=== PATIENT | male | born 1960 | race Caucasian/White ===

== ENCOUNTER 2018-01-25 00:13 | Day surgery (SDC) | payer MEDICARE ==
[~2018-01-25 00:13] MED LIST: CITA20 PO; CYCL10 PO; DICL75ER PO; Doxycycline Hy100 MG PO; FURO20 PO; HYDCHL12.5 PO; Ipratropium Bro15 ML BC; LEVSOD88 PO; LISI20 PO; LOVA40 PO; METF500 PO; METO50 PO; MORPHINE 11000 MG/10 IV; PILO5 PO; PREG50 PO; Percocet 10-321 EACH PO; Prilosec Otc20 MG PO; QNASL8.7 GM; TRAM50 PO
== END 2018-01-25 23:22 | disposition home or self-care (01) ==
LOC: WOUND 00:13
PROC: 0HBKXZZ Excision of Right Lower Leg Skin, External Approach (ICD-10-PCS; principal; 2018-01-25)
PROC: 0HBNXZZ Excision of Left Foot Skin, External Approach (ICD-10-PCS; principal; 2018-01-25)
DX: E11.621 Type 2 diabetes mellitus with foot ulcer (principal); E11.622 Type 2 diabetes mellitus with other skin ulcer; L97.522 Non-pressure chronic ulcer of other part of left foot with fat layer exposed; L97.819 Non-pressure chronic ulcer of other part of right lower leg with unspecified severity; I87.2 Venous insufficiency (chronic) (peripheral); I83.009 Varicose veins of unspecified lower extremity with ulcer of unspecified site; R60.0 Localized edema; G47.30 Sleep apnea, unspecified; R22.43 Localized swelling, mass and lump, lower limb, bilateral
CPT/HCPCS: G0463

== ENCOUNTER 2018-02-01 10:57 | Day surgery (SDC) | payer MEDICARE, OTHER | END 2018-02-01 12:21 | disposition home or self-care (01) | LOC: WOUND 10:57 | PROC: 0HBKXZZ Excision of Right Lower Leg Skin, External Approach (ICD-10-PCS; principal; 2018-02-01) | PROC: 0HBNXZZ Excision of Left Foot Skin, External Approach (ICD-10-PCS; principal; 2018-02-01) | DX: E11.621 Type 2 diabetes mellitus with foot ulcer (principal); L97.522 Non-pressure chronic ulcer of other part of left foot with fat layer exposed; E11.622 Type 2 diabetes mellitus with other skin ulcer; I87.2 Venous insufficiency (chronic) (peripheral); L97.819 Non-pressure chronic ulcer of other part of right lower leg with unspecified severity; R60.0 Localized edema; I10 Essential (primary) hypertension; G47.30 Sleep apnea, unspecified ==

== ENCOUNTER 2018-02-03 12:30 | Day surgery (SDC) | payer MEDICARE, OTHER | END 2018-02-03 13:39 | disposition home or self-care (01) | LOC: WOUND 12:30 | PROC: 2W1QX6Z Compression of Right Lower Leg using Pressure Dressing (ICD-10-PCS; principal; 2018-02-03) | DX: I87.2 Venous insufficiency (chronic) (peripheral) (principal); L97.819 Non-pressure chronic ulcer of other part of right lower leg with unspecified severity; E11.621 Type 2 diabetes mellitus with foot ulcer; L97.529 Non-pressure chronic ulcer of other part of left foot with unspecified severity; I83.009 Varicose veins of unspecified lower extremity with ulcer of unspecified site; R60.0 Localized edema; I10 Essential (primary) hypertension; G47.30 Sleep apnea, unspecified; R22.43 Localized swelling, mass and lump, lower limb, bilateral; I70.209 Unspecified atherosclerosis of native arteries of extremities, unspecified extremity ==

== ENCOUNTER 2018-02-06 11:30 | Day surgery (SDC) | payer MEDICARE, OTHER | END 2018-02-06 16:01 | disposition home or self-care (01) | LOC: WOUND 11:30 | PROC: 2W1QX6Z Compression of Right Lower Leg using Pressure Dressing (ICD-10-PCS; principal; 2018-02-06) | DX: E11.622 Type 2 diabetes mellitus with other skin ulcer (principal); E11.621 Type 2 diabetes mellitus with foot ulcer; L97.819 Non-pressure chronic ulcer of other part of right lower leg with unspecified severity; I87.2 Venous insufficiency (chronic) (peripheral); I83.009 Varicose veins of unspecified lower extremity with ulcer of unspecified site; R60.0 Localized edema; I10 Essential (primary) hypertension; G47.30 Sleep apnea, unspecified; E11.21 Type 2 diabetes mellitus with diabetic nephropathy; I70.209 Unspecified atherosclerosis of native arteries of extremities, unspecified extremity ==

== ENCOUNTER 2018-02-22 09:25 | Day surgery (SDC) | payer MEDICARE, OTHER | END 2018-02-22 10:04 | disposition home or self-care (01) | LOC: WOUND 09:25 | DX: Z48.00 Encounter for change or removal of nonsurgical wound dressing (principal); E11.621 Type 2 diabetes mellitus with foot ulcer; L97.529 Non-pressure chronic ulcer of other part of left foot with unspecified severity; I87.2 Venous insufficiency (chronic) (peripheral); R60.0 Localized edema; I10 Essential (primary) hypertension; E11.21 Type 2 diabetes mellitus with diabetic nephropathy | CPT/HCPCS: G0463 ==

== ENCOUNTER 2018-04-14 12:50 | Day surgery (SDC) | payer MEDICARE, OTHER | END 2018-04-14 14:45 | disposition home or self-care (01) | LOC: WOUND 12:50 | PROC: 2W1QX6Z Compression of Right Lower Leg using Pressure Dressing (ICD-10-PCS; principal; 2018-04-14) | DX: I87.2 Venous insufficiency (chronic) (peripheral) (principal); L97.819 Non-pressure chronic ulcer of other part of right lower leg with unspecified severity; I10 Essential (primary) hypertension; Z87.891 Personal history of nicotine dependence; E11.621 Type 2 diabetes mellitus with foot ulcer | CPT/HCPCS: G0463 ==

== ENCOUNTER → 2018-04-26 | Outpatient (CLI) | payer MEDICARE, OTHER | END | disposition home or self-care (01) | LOC: LAB 17:03 → LAB SHORT 17:03 | DX: I89.0 Lymphedema, not elsewhere classified (principal); L08.9 Local infection of the skin and subcutaneous tissue, unspecified; L97.819 Non-pressure chronic ulcer of other part of right lower leg with unspecified severity; R60.0 Localized edema; I87.2 Venous insufficiency (chronic) (peripheral) | CPT/HCPCS: 87070; 87205 ==

== ENCOUNTER 2018-07-24 01:40 | Day surgery (SDC) | payer MEDICARE, OTHER | END 2018-07-24 22:40 | disposition home or self-care (01) | LOC: WOUND | DX: E11.621 Type 2 diabetes mellitus with foot ulcer (principal); L97.422 Non-pressure chronic ulcer of left heel and midfoot with fat layer exposed; L97.812 Non-pressure chronic ulcer of other part of right lower leg with fat layer exposed; L97.811 Non-pressure chronic ulcer of other part of right lower leg limited to breakdown of skin; L97.821 Non-pressure chronic ulcer of other part of left lower leg limited to breakdown of skin; I89.0 Lymphedema, not elsewhere classified; M79.672 Pain in left foot; E11.42 Type 2 diabetes mellitus with diabetic polyneuropathy; L95.9 Vasculitis limited to the skin, unspecified ==

== ENCOUNTER 2018-07-27 00:16 | Day surgery (SDC) | payer MEDICARE, OTHER | END 2018-07-27 22:54 | disposition home or self-care (01) | LOC: WOUND 00:16 | DX: E11.621 Type 2 diabetes mellitus with foot ulcer (principal); L97.812 Non-pressure chronic ulcer of other part of right lower leg with fat layer exposed; L97.422 Non-pressure chronic ulcer of left heel and midfoot with fat layer exposed; L97.811 Non-pressure chronic ulcer of other part of right lower leg limited to breakdown of skin; L97.821 Non-pressure chronic ulcer of other part of left lower leg limited to breakdown of skin; S71.101D Unspecified open wound, right thigh, subsequent encounter; I89.0 Lymphedema, not elsewhere classified; R22.31 Localized swelling, mass and lump, right upper limb; M79.672 Pain in left foot; E11.42 Type 2 diabetes mellitus with diabetic polyneuropathy ==

== ENCOUNTER 2018-08-03 09:05 | Day surgery (SDC) | payer MEDICARE, OTHER | END 2018-08-03 23:00 | disposition home or self-care (01) | LOC: WOUND 09:05 | DX: E11.621 Type 2 diabetes mellitus with foot ulcer (principal); L97.422 Non-pressure chronic ulcer of left heel and midfoot with fat layer exposed; L97.812 Non-pressure chronic ulcer of other part of right lower leg with fat layer exposed; L97.811 Non-pressure chronic ulcer of other part of right lower leg limited to breakdown of skin; L97.821 Non-pressure chronic ulcer of other part of left lower leg limited to breakdown of skin; I89.0 Lymphedema, not elsewhere classified; M79.672 Pain in left foot; E11.42 Type 2 diabetes mellitus with diabetic polyneuropathy | CPT/HCPCS: 87070; 87075; 87205 ==

== ENCOUNTER 2018-08-10 09:15 | Day surgery (SDC) | payer MEDICARE, OTHER | END 2018-08-10 22:44 | disposition home or self-care (01) | LOC: WOUND 09:15 | DX: E11.621 Type 2 diabetes mellitus with foot ulcer (principal); L97.422 Non-pressure chronic ulcer of left heel and midfoot with fat layer exposed; L97.812 Non-pressure chronic ulcer of other part of right lower leg with fat layer exposed; L97.811 Non-pressure chronic ulcer of other part of right lower leg limited to breakdown of skin; L97.821 Non-pressure chronic ulcer of other part of left lower leg limited to breakdown of skin; I89.0 Lymphedema, not elsewhere classified; R22.31 Localized swelling, mass and lump, right upper limb; M79.672 Pain in left foot; E11.42 Type 2 diabetes mellitus with diabetic polyneuropathy ==

== ENCOUNTER 2018-08-17 09:15 | Day surgery (SDC) | payer MEDICARE, OTHER | END 2018-08-17 22:50 | disposition home or self-care (01) | LOC: WOUND 09:15 | DX: E11.621 Type 2 diabetes mellitus with foot ulcer (principal); L97.422 Non-pressure chronic ulcer of left heel and midfoot with fat layer exposed; L97.812 Non-pressure chronic ulcer of other part of right lower leg with fat layer exposed; L97.811 Non-pressure chronic ulcer of other part of right lower leg limited to breakdown of skin; L97.821 Non-pressure chronic ulcer of other part of left lower leg limited to breakdown of skin; I89.0 Lymphedema, not elsewhere classified; R22.31 Localized swelling, mass and lump, right upper limb; M79.672 Pain in left foot; E11.42 Type 2 diabetes mellitus with diabetic polyneuropathy; Z88.0 Allergy status to penicillin; Z79.84 Long term (current) use of oral hypoglycemic drugs | CPT/HCPCS: 87070; 87075; 87077; 87147; 87186; 87205 ==

== ENCOUNTER 2018-08-24 00:27 | Day surgery (SDC) | payer MEDICARE, OTHER | END 2018-08-24 23:59 | disposition home or self-care (01) | LOC: WOUND 00:27 | PROC: 0HBNXZZ Excision of Left Foot Skin, External Approach (ICD-10-PCS; principal; 2018-08-24) | PROC: 0HBKXZZ Excision of Right Lower Leg Skin, External Approach (ICD-10-PCS; principal; 2018-08-24) | DX: E11.621 Type 2 diabetes mellitus with foot ulcer (principal); L97.811 Non-pressure chronic ulcer of other part of right lower leg limited to breakdown of skin; I89.0 Lymphedema, not elsewhere classified; R22.31 Localized swelling, mass and lump, right upper limb; E11.42 Type 2 diabetes mellitus with diabetic polyneuropathy; M79.672 Pain in left foot; E11.622 Type 2 diabetes mellitus with other skin ulcer; L97.429 Non-pressure chronic ulcer of left heel and midfoot with unspecified severity | CPT/HCPCS: 87070; 87077; 87186; 87205 ==

== ENCOUNTER 2018-08-31 09:30 | Day surgery (SDC) | payer MEDICARE, OTHER | END 2018-08-31 22:53 | disposition home or self-care (01) | LOC: WOUND 09:30 | DX: E11.621 Type 2 diabetes mellitus with foot ulcer (principal); L97.425 Non-pressure chronic ulcer of left heel and midfoot with muscle involvement without evidence of necrosis; L97.811 Non-pressure chronic ulcer of other part of right lower leg limited to breakdown of skin; L97.821 Non-pressure chronic ulcer of other part of left lower leg limited to breakdown of skin; I89.0 Lymphedema, not elsewhere classified; R22.31 Localized swelling, mass and lump, right upper limb; M79.672 Pain in left foot; E11.42 Type 2 diabetes mellitus with diabetic polyneuropathy; Z79.01 Long term (current) use of anticoagulants | CPT/HCPCS: G0463 ==

== ENCOUNTER 2018-09-07 09:09 | Day surgery (SDC) | payer MEDICARE, OTHER | END 2018-09-07 23:19 | disposition home or self-care (01) | LOC: WOUND 09:09 | DX: E11.621 Type 2 diabetes mellitus with foot ulcer (principal); L97.425 Non-pressure chronic ulcer of left heel and midfoot with muscle involvement without evidence of necrosis; L97.812 Non-pressure chronic ulcer of other part of right lower leg with fat layer exposed; L97.811 Non-pressure chronic ulcer of other part of right lower leg limited to breakdown of skin; I89.0 Lymphedema, not elsewhere classified; R22.31 Localized swelling, mass and lump, right upper limb; M79.672 Pain in left foot; E11.42 Type 2 diabetes mellitus with diabetic polyneuropathy; Z79.01 Long term (current) use of anticoagulants; Z79.84 Long term (current) use of oral hypoglycemic drugs ==

== ENCOUNTER 2018-09-14 08:50 | Day surgery (SDC) | payer MEDICARE, OTHER | END 2018-09-14 23:01 | disposition home or self-care (01) | LOC: WOUND 08:50 | DX: E11.621 Type 2 diabetes mellitus with foot ulcer (principal); E11.622 Type 2 diabetes mellitus with other skin ulcer; L97.811 Non-pressure chronic ulcer of other part of right lower leg limited to breakdown of skin; L97.422 Non-pressure chronic ulcer of left heel and midfoot with fat layer exposed; L97.812 Non-pressure chronic ulcer of other part of right lower leg with fat layer exposed; I89.0 Lymphedema, not elsewhere classified; R22.31 Localized swelling, mass and lump, right upper limb; E11.42 Type 2 diabetes mellitus with diabetic polyneuropathy; I10 Essential (primary) hypertension; E78.5 Hyperlipidemia, unspecified; G47.33 Obstructive sleep apnea (adult) (pediatric) ==

== ENCOUNTER 2018-09-21 00:27 | Day surgery (SDC) | payer MEDICARE, OTHER | END 2018-09-21 22:45 | disposition home or self-care (01) | LOC: WOUND 00:27 | DX: E11.621 Type 2 diabetes mellitus with foot ulcer (principal); L97.425 Non-pressure chronic ulcer of left heel and midfoot with muscle involvement without evidence of necrosis; L97.812 Non-pressure chronic ulcer of other part of right lower leg with fat layer exposed; L97.811 Non-pressure chronic ulcer of other part of right lower leg limited to breakdown of skin; I89.0 Lymphedema, not elsewhere classified; R22.31 Localized swelling, mass and lump, right upper limb; M79.672 Pain in left foot; E11.42 Type 2 diabetes mellitus with diabetic polyneuropathy; Z79.82 Long term (current) use of aspirin; Z79.84 Long term (current) use of oral hypoglycemic drugs ==

== ENCOUNTER 2018-09-26 00:17 | Day surgery (SDC) | payer MEDICARE, OTHER | END 2018-09-26 22:46 | disposition home or self-care (01) | LOC: WOUND 00:17 | DX: E11.621 Type 2 diabetes mellitus with foot ulcer (principal); L97.429 Non-pressure chronic ulcer of left heel and midfoot with unspecified severity; E11.622 Type 2 diabetes mellitus with other skin ulcer; L97.811 Non-pressure chronic ulcer of other part of right lower leg limited to breakdown of skin; E11.42 Type 2 diabetes mellitus with diabetic polyneuropathy; I89.0 Lymphedema, not elsewhere classified; M79.672 Pain in left foot; R22.31 Localized swelling, mass and lump, right upper limb; E66.9 Obesity, unspecified; I10 Essential (primary) hypertension; E78.5 Hyperlipidemia, unspecified; G47.33 Obstructive sleep apnea (adult) (pediatric) ==

== ENCOUNTER 2018-09-28 09:00 | Day surgery (SDC) | payer MEDICARE, OTHER | END 2018-09-28 22:43 | disposition home or self-care (01) | LOC: WOUND 09:00 | DX: E11.621 Type 2 diabetes mellitus with foot ulcer (principal); L97.422 Non-pressure chronic ulcer of left heel and midfoot with fat layer exposed; L97.811 Non-pressure chronic ulcer of other part of right lower leg limited to breakdown of skin; I89.0 Lymphedema, not elsewhere classified; R22.31 Localized swelling, mass and lump, right upper limb; M79.672 Pain in left foot; E11.42 Type 2 diabetes mellitus with diabetic polyneuropathy; Z79.84 Long term (current) use of oral hypoglycemic drugs; Z88.0 Allergy status to penicillin ==

== ENCOUNTER 2018-11-13 00:29 | Day surgery (SDC) | payer MEDICARE, OTHER ==
[~2018-11-13 00:29] MED LIST changes: +ESOM20 PO
== END 2018-11-13 18:40 | disposition home or self-care (01) ==
LOC: ATC 00:29
DX: E11.42 Type 2 diabetes mellitus with diabetic polyneuropathy (principal); L03.116 Cellulitis of left lower limb; E11.621 Type 2 diabetes mellitus with foot ulcer; L97.429 Non-pressure chronic ulcer of left heel and midfoot with unspecified severity
CPT/HCPCS: J3370; J7050

== ENCOUNTER 2018-11-29 07:36 | Day surgery (SDC) | payer MEDICARE, OTHER ==
[2018-11-29] MEDS ORDERED: Rocephin 1g1 G/50 ML IV (08:05)
== END 2018-11-29 08:20 | disposition home or self-care (01) ==
LOC: ATC 07:36
DX: I87.2 Venous insufficiency (chronic) (peripheral) (principal); L03.116 Cellulitis of left lower limb; L03.115 Cellulitis of right lower limb; I83.009 Varicose veins of unspecified lower extremity with ulcer of unspecified site; E11.621 Type 2 diabetes mellitus with foot ulcer; E11.21 Type 2 diabetes mellitus with diabetic nephropathy; E11.51 Type 2 diabetes mellitus with diabetic peripheral angiopathy without gangrene; I70.209 Unspecified atherosclerosis of native arteries of extremities, unspecified extremity; I10 Essential (primary) hypertension; G47.30 Sleep apnea, unspecified
CPT/HCPCS: 96365; J0696

== ENCOUNTER 2018-11-30 00:15 | Day surgery (SDC) | payer MEDICARE, OTHER ==
[~2018-11-30 00:15] MED LIST changes: +Rocephin 1g1 G/50 ML IV
== END 2018-11-30 10:39 | disposition home or self-care (01) ==
LOC: ATC 00:15
DX: I87.2 Venous insufficiency (chronic) (peripheral) (principal); L03.116 Cellulitis of left lower limb; L03.115 Cellulitis of right lower limb
CPT/HCPCS: 96365; J0696

== ENCOUNTER 2018-12-01 00:16 | Day surgery (SDC) | payer MEDICARE, OTHER | END 2018-12-01 10:45 | disposition home or self-care (01) | LOC: ATC 00:16 | DX: I87.2 Venous insufficiency (chronic) (peripheral) (principal); L03.115 Cellulitis of right lower limb; L03.116 Cellulitis of left lower limb; E11.621 Type 2 diabetes mellitus with foot ulcer; E11.21 Type 2 diabetes mellitus with diabetic nephropathy; E11.51 Type 2 diabetes mellitus with diabetic peripheral angiopathy without gangrene; I70.209 Unspecified atherosclerosis of native arteries of extremities, unspecified extremity; I83.009 Varicose veins of unspecified lower extremity with ulcer of unspecified site; I10 Essential (primary) hypertension; G47.30 Sleep apnea, unspecified | CPT/HCPCS: 96365; J0696 ==

== ENCOUNTER 2018-12-02 10:00 | Day surgery (SDC) | payer MEDICARE, OTHER | END 2018-12-02 23:30 | disposition home or self-care (01) | LOC: ATC 10:00 | DX: I87.2 Venous insufficiency (chronic) (peripheral) (principal); L03.116 Cellulitis of left lower limb; L03.115 Cellulitis of right lower limb; E11.9 Type 2 diabetes mellitus without complications | CPT/HCPCS: 96365 ==

== ENCOUNTER 2018-12-03 00:03 | Day surgery (SDC) | payer MEDICARE, OTHER | END 2018-12-03 22:39 | disposition home or self-care (01) | LOC: ATC 00:03 | DX: I87.2 Venous insufficiency (chronic) (peripheral) (principal); E11.42 Type 2 diabetes mellitus with diabetic polyneuropathy; L03.116 Cellulitis of left lower limb; L03.115 Cellulitis of right lower limb ==

== ENCOUNTER 2018-12-04 00:04 | Day surgery (SDC) | payer MEDICARE, OTHER | END 2018-12-04 23:07 | disposition home or self-care (01) | LOC: ATC 00:04 | DX: I87.2 Venous insufficiency (chronic) (peripheral) (principal); E11.42 Type 2 diabetes mellitus with diabetic polyneuropathy; L03.116 Cellulitis of left lower limb; L03.115 Cellulitis of right lower limb ==

== ENCOUNTER 2018-12-14 15:00 | Day surgery (SDC) | payer MEDICARE, OTHER | END 2018-12-14 15:03 | disposition home or self-care (01) | LOC: ATC 15:00 | DX: E11.42 Type 2 diabetes mellitus with diabetic polyneuropathy (principal); L03.116 Cellulitis of left lower limb; E11.621 Type 2 diabetes mellitus with foot ulcer; L97.429 Non-pressure chronic ulcer of left heel and midfoot with unspecified severity; M86.172 Other acute osteomyelitis, left ankle and foot; L02.612 Cutaneous abscess of left foot; B99.9 Unspecified infectious disease; M77.32 Calcaneal spur, left foot; I89.0 Lymphedema, not elsewhere classified | CPT/HCPCS: 96365; J0696 ==

== ENCOUNTER 2018-12-16 10:58 | Day surgery (SDC) | payer MEDICARE, OTHER | END 2018-12-16 13:09 | disposition home or self-care (01) | LOC: ATC 10:58 | DX: E11.69 Type 2 diabetes mellitus with other specified complication (principal); M86.172 Other acute osteomyelitis, left ankle and foot; E11.621 Type 2 diabetes mellitus with foot ulcer; L03.116 Cellulitis of left lower limb; L03.115 Cellulitis of right lower limb; L02.612 Cutaneous abscess of left foot; E11.42 Type 2 diabetes mellitus with diabetic polyneuropathy; I87.2 Venous insufficiency (chronic) (peripheral); M77.32 Calcaneal spur, left foot; I89.0 Lymphedema, not elsewhere classified; B99.9 Unspecified infectious disease | CPT/HCPCS: 36569; 96365; C1751; J0696 ==

== ENCOUNTER 2018-12-17 11:02 | Day surgery (SDC) | payer MEDICARE, OTHER | END 2018-12-17 11:38 | disposition home or self-care (01) | LOC: ATC 11:02 | DX: E11.69 Type 2 diabetes mellitus with other specified complication (principal); M86.172 Other acute osteomyelitis, left ankle and foot; E11.621 Type 2 diabetes mellitus with foot ulcer; L03.116 Cellulitis of left lower limb; L03.115 Cellulitis of right lower limb; L02.612 Cutaneous abscess of left foot; E11.42 Type 2 diabetes mellitus with diabetic polyneuropathy; I87.2 Venous insufficiency (chronic) (peripheral); M77.32 Calcaneal spur, left foot; I89.0 Lymphedema, not elsewhere classified; B99.9 Unspecified infectious disease | CPT/HCPCS: 96365; J0696 ==

== ENCOUNTER 2018-12-20 00:20 | Day surgery (SDC) | payer MEDICARE, OTHER | END 2018-12-20 22:46 | disposition home or self-care (01) | LOC: ATC 00:20 | DX: I87.2 Venous insufficiency (chronic) (peripheral) (principal); L03.116 Cellulitis of left lower limb; L03.115 Cellulitis of right lower limb; E11.621 Type 2 diabetes mellitus with foot ulcer; L97.429 Non-pressure chronic ulcer of left heel and midfoot with unspecified severity; I83.009 Varicose veins of unspecified lower extremity with ulcer of unspecified site; E11.51 Type 2 diabetes mellitus with diabetic peripheral angiopathy without gangrene; I70.209 Unspecified atherosclerosis of native arteries of extremities, unspecified extremity; E11.42 Type 2 diabetes mellitus with diabetic polyneuropathy; I10 Essential (primary) hypertension; G47.30 Sleep apnea, unspecified | CPT/HCPCS: 96365; J0696 ==

== ENCOUNTER → 2021-07-01 | Outpatient (CLI) | payer MEDICARE, OTHER ==
[2021-07-01 09:48] LABS: BASOPHILS ABSOLUTE AUTO 0.07 K/mm3 (0.00-0.23); BASOPHILS PERCENT AUTO 1 % (0-2); EOSINOPHILS PERCENT AUTO 2 % (0-6); Hematocrit 37.9 % (37.0-53.0); Hemoglobin 11.8 g/dL (13.5-17.5); IMMATURE GRAN ABSOLUTE AUTO 0.12 K/mm3 (0.00-0.10); IMMATURE GRAN PERCENT AUTO 1 % (0-1); LYMPHOCYTES ABSOLUTE AUTO 1.25 K/mm3 (0.84-5.20); LYMPHOCYTES PERCENT AUTO 10 % (21-46); MONOCYTES ABSOLUTE AUTO 0.98 K/mm3 (0.16-1.47); MONOCYTES PERCENT AUTO 8 % (4-13); Mean Corpuscular HGB 25.4 pg (26.0-34.0); Mean Corpuscular HGB Conc 31.1 g/dL (31.5-36.5); Mean Corpuscular Volume 82 fL (80-100); Mean Platelet Volume 8.2 fL (9.1-12.4); NEUTROPHILS ABSOLUTE AUTO 10.36 K/mm3 (1.96-9.15); NEUTROPHILS PERCENT AUTO 80 % (41-73); Platelet Count 614 K/mm3 (150-400); RDW Coefficient Variation 14.7 % (11.7-14.2); RDW Standard Deviation 44.3 fL (35.1-46.3); Red Blood Cell Count 4.65 M/mm3 (4.30-5.90); White Blood Cell Count 12.98 K/mm3 (4.00-11.30)
[2021-07-01 10:11] LABS: Alanine Aminotransfer (ALT/SGP 16 U/L (12-78); Albumin, Blood 2.2 g/dL (3.4-5.0); Albumin/Globulin Ratio 0.3 (0.8-1.8); Alk Phos 163 U/L (40-126); Anion Gap 9 mmol/L (6-16); Aspartate Aminotrans (AST/SGOT 7 U/L (12-37); Bilirubin, Total 0.3 mg/dL (0.1-1.0); Blood Urea Nitrogen 11 mg/dL (8-24); Bun/Creatinine Ratio 14.3 (12.0-20.0); CO2, Blood 30 mmol/L (21-32); Calcium, Blood 9.8 mg/dL (8.5-10.1); Chloride, Blood 97 mmol/L (98-108); Creatinine, Blood 0.77 mg/dL (0.60-1.20); Globulin, Blood 6.5 g/dL (2.2-4.0); Glomerular Filtration Rate >60 (60-); Glucose, Blood 216 mg/dL (70-99); Potassium, Blood 4.4 mmol/L (3.5-5.5); Sodium, Blood 136 mmol/L (136-145); Thyroid Stimulating Hormone 1.859 uIU/mL (0.360-4.800); Total Protein, Blood 8.7 g/dL (6.4-8.2)
[2021-07-01 10:15] LABS: Troponin I <0.017 ng/mL (0.000-0.040)
== END ==
LOC: LAB SHORT 09:42
PROVIDERS: Chiropractor
DX: R07.81 Pleurodynia (principal); R53.83 Other fatigue; Z88.0 Allergy status to penicillin
CPT/HCPCS: 80053; 83880; 84443; 84484; 85025; 85379

== ENCOUNTER → 2021-07-22 | Outpatient (CLI) | payer MEDICARE, OTHER ==
[2021-07-22 14:09] LABS: BASOPHILS ABSOLUTE AUTO 0.02 K/mm3 (0.00-0.23); BASOPHILS PERCENT AUTO 0 % (0-2); EOSINOPHILS ABSOLUTE AUTO 0.02 K/mm3 (0.00-0.68); EOSINOPHILS PERCENT AUTO 0 % (0-6); Hematocrit 37.7 % (37.0-53.0); Hemoglobin 11.8 g/dL (13.5-17.5); IMMATURE GRAN ABSOLUTE AUTO 0.06 K/mm3 (0.00-0.10); IMMATURE GRAN PERCENT AUTO 1 % (0-1); LYMPHOCYTES ABSOLUTE AUTO 0.74 K/mm3 (0.84-5.20); LYMPHOCYTES PERCENT AUTO 8 % (21-46); MONOCYTES ABSOLUTE AUTO 0.52 K/mm3 (0.16-1.47); MONOCYTES PERCENT AUTO 5 % (4-13); Mean Corpuscular HGB 24.9 pg (26.0-34.0); Mean Corpuscular HGB Conc 31.3 g/dL (31.5-36.5); Mean Corpuscular Volume 80 fL (80-100); Mean Platelet Volume 8.4 fL (9.1-12.4); NEUTROPHILS ABSOLUTE AUTO 8.49 K/mm3 (1.96-9.15); NEUTROPHILS PERCENT AUTO 86 % (41-73); Platelet Count 333 K/mm3 (150-400); RDW Coefficient Variation 14.6 % (11.7-14.2); RDW Standard Deviation 42.6 fL (35.1-46.3); Red Blood Cell Count 4.73 M/mm3 (4.30-5.90); White Blood Cell Count 9.85 K/mm3 (4.00-11.30)
[2021-07-22 14:26] LABS: Alanine Aminotransfer (ALT/SGP 31 U/L (12-78); Albumin, Blood 2.5 g/dL (3.4-5.0); Albumin/Globulin Ratio 0.4 (0.8-1.8); Alk Phos 115 U/L (40-126); Anion Gap 10 mmol/L (6-16); Aspartate Aminotrans (AST/SGOT 22 U/L (12-37); Bilirubin, Total 0.4 mg/dL (0.1-1.0); Blood Urea Nitrogen 9 mg/dL (8-24); Bun/Creatinine Ratio 13.4 (12.0-20.0); CO2, Blood 28 mmol/L (21-32); Chloride, Blood 98 mmol/L (98-108); Creatinine, Blood 0.67 mg/dL (0.60-1.20); Globulin, Blood 6.4 g/dL (2.2-4.0); Glomerular Filtration Rate >60 (60-); Glucose, Blood 222 mg/dL (70-99); Potassium, Blood 3.8 mmol/L (3.5-5.5); Sodium, Blood 136 mmol/L (136-145); Total Protein, Blood 8.9 g/dL (6.4-8.2); Troponin I <0.017 ng/mL (0.000-0.040)
== END | disposition home or self-care (01) ==
LOC: LAB 14:05 → LAB SHORT 14:05
PROVIDERS: Family Medicine
DX: R07.89 Other chest pain (principal)
CPT/HCPCS: 80053; 84484; 85025; 85379

== ENCOUNTER 2021-08-06 10:45 | Inpatient (IN) | payer MEDICARE, OTHER ==
[~2021-08-06] VITALS: Ht 182.9 cm; Wt 103.8 kg
[2021-08-06 11:18] LABS: BASOPHILS ABSOLUTE AUTO 0.04 K/mm3 (0.00-0.23); BASOPHILS PERCENT AUTO 0 % (0-2); Hematocrit 38.9 % (37.0-53.0); Hemoglobin 12.3 g/dL (13.5-17.5); LYMPHOCYTES PERCENT AUTO 4 % (21-46); MONOCYTES ABSOLUTE AUTO 0.54 K/mm3 (0.16-1.47); MONOCYTES PERCENT AUTO 3 % (4-13); Mean Corpuscular HGB Conc 31.6 g/dL (31.5-36.5); Mean Corpuscular Volume 76 fL (80-100); Mean Platelet Volume 9.8 fL (9.1-12.4); NRBC ABSOLUTE 0.02 K/mm3 (0.00-0.02); NRBC Auto 0.1 /100 WBC (0.0-0.2); Platelet Count 394 K/mm3 (150-400); RDW Standard Deviation 41.5 fL (35.1-46.3); Red Blood Cell Count 5.13 M/mm3 (4.30-5.90); White Blood Cell Count 16.59 K/mm3 (4.00-11.30)
[2021-08-06 11:21] LABS: EOSINOPHILS PERCENT AUTO 0 % (0-6); IMMATURE GRAN ABSOLUTE AUTO 0.29 K/mm3 (0.00-0.10); IMMATURE GRAN PERCENT AUTO 2 % (0-1); NEUTROPHILS ABSOLUTE AUTO 15.02 K/mm3 (1.96-9.15); NEUTROPHILS PERCENT AUTO 91 % (41-73)
[2021-08-06 11:28] LABS: Base Excess Venous 1.2 mmol/L; Bicarbonate Venous 25.2 mmol/L (24.0-30.0); PCO2 Venous 34.8 mmHg (38-42); PO2 Venous 36.4 mmHg (38-42); pH Blood Venous 7.47 (7.34-7.37)
[2021-08-06 11:30] LABS: Calcium, Ionized (POC) 1.23 mmol/L (1.10-1.46); Chloride (POC) 90 mmol/L (98-108); Creatinine (POC) 0.5 mg/dL (0.8-1.3); Glucose (ISTAT POC) 365 mg/dL (70-99); Hemoglobin (POC) 13.3 g/dL (13.5-17.5); Potassium (POC) 3.9 mmol/L (3.5-5.5); Sodium (POC) 127 mmol/L (135-148); Total CO2 (POC) 22 mmol/L (21-32)
[2021-08-06 11:36] LABS: Alanine Aminotransfer (ALT/SGP 90 U/L (12-78); Albumin, Blood 1.4 g/dL (3.4-5.0); Albumin/Globulin Ratio 0.2 (0.8-1.8); Alk Phos 244 U/L (50-136); Anion Gap 14 mmol/L (6-16); Aspartate Aminotrans (AST/SGOT 179 U/L (12-37); Blood Urea Nitrogen 18 mg/dL (8-24); Bun/Creatinine Ratio 33.3 (12.0-20.0); CO2, Blood 22 mmol/L (21-32); Calcium, Blood 10.4 mg/dL (8.5-10.1); Chloride, Blood 90 mmol/L (98-108); Creatinine, Blood 0.54 mg/dL (0.60-1.20); Globulin, Blood 6.7 g/dL (2.2-4.0); Glomerular Filtration Rate >60 (60-); Glucose, Blood 361 mg/dL (70-99); Sodium, Blood 126 mmol/L (136-145); Total Protein, Blood 8.1 g/dL (6.4-8.2); Troponin I <0.015 ng/mL (0.000-0.040)
[2021-08-06 11:56] LABS: BAND PERCENT MAN 6 % (0-8); BASOPHILS PERCENT MAN 0 % (0-2); EOSINOPHILS PERCENT MAN 0 % (0-6); LYMPHOCYTES ABSOLUTE MAN 0.33 K/mm3 (0.84-5.20); LYMPHOCYTES PERCENT MAN 2 % (21-46); MONOCYTES ABSOLUTE MAN 0.33 K/mm3 (0.16-1.47); MONOCYTES PERCENT MAN 2 % (4-13); MYELOCYTE ABSOLUTE MAN 0.49 K/mm3 (0.00-0.00); MYELOCYTE PERCENT MAN 3 % (0-0); NEUTROPHILS ABSOLUTE MAN 15.42 K/mm3 (1.96-9.15); SEG NEUTROPHILS PERCENT MAN 87 % (41-73); TOTAL CELLS COUNTED 100
[2021-08-06 12:18] LABS: Free Thyroxine 1.41 ng/dL (0.70-1.60); Thyroid Stimulating Hormone 0.717 uIU/mL (0.360-4.800)
[2021-08-06 12:22] LABS: Source, Urine Catheter
[2021-08-06 12:30] LABS: Appearance, Urine Clear (Clear); Blood, Urine 5+ (Neg); Color, Urine Amber (P-Yellow); Glucose Qualitative, Urine 2+ (Neg); Ketones, Urine 3+ (Neg); Leukocyte Esterase, Urine Neg (Neg); Nitrite, Urine Pos (Neg); Protein, Urine 4+ (Neg); Urobilinogen, Urine 2+ (Normal)
[2021-08-06 12:54] LABS: Bilirubin, Urine 1+ (Neg)
[2021-08-06 13:01] LABS: Amorphous Mod (0-Heavy); Bacteria Many /hpf; Mucus Heavy (0-Heavy); Squamous Epithelial Cells Rare /hpf (Few)
[2021-08-06 13:07] LABS: PCO2 Arterial 27.2 mmHg (35-45); PO2 Arterial 59.6 mmHg (80-100); pH Blood Arterial 7.57 (7.35-7.45)
[2021-08-06 13:17] LABS: U Amphetamine Screen Not Detected; U Barbituate Screen Not Detected; U Benzodiazapine Screen Not Detected; U Cocaine Screen Not Detected; U Methadone Screen Not Detected; U Methamphetamine Screen Not Detected; U Opiates Screen DETECTED
[2021-08-06 13:18] LABS: U Buprenorphine Screen Not Detected; U Cannabinoids Screen Not Detected; U Oxycodone Screen Not Detected; U Phencyclidine Screen Not Detected; U Propoxyphene Screen Not Detected
[2021-08-06] MEDS ORDERED: ATORVASTATIN CA80 M1 PO (15:33)
[2021-08-06] MEDS ORDERED: CELEXA40 M1 PO (15:34)
[2021-08-06] MEDS ORDERED: CYCL10 PO (15:36)
[2021-08-06] MEDS ORDERED: Trulicity SC (15:37)
[2021-08-06] MEDS ORDERED: FAMO20 PO (15:38)
[2021-08-06] MEDS ORDERED: GABA300 PO (15:39)
[2021-08-06] MEDS ORDERED: SYNTHROID PO (15:40)
[2021-08-06] MEDS ORDERED: METFORMIN HCL500 M3 PO (15:42)
[2021-08-06] MEDS ORDERED: Lopressor 25 mg25 MG PO (15:43)
[2021-08-06] MEDS ORDERED: K-Dur20 MEQ PO (15:44)
--- NOTE | 2021-08-07 02:27 | NUR ---
ASSUMED CARE OF PATIENT AT 2114 FROM ED. SEGUN A/O. PATIENT MOANS WITH INCOMPREHENSIBLE SPEECH. AT BEDSIDE. GENERALIZED BODY PAIN 5/10. MAINTAINING OVER 95% ON 2L NC. DIM LS T/O. TACHYPNEA 28-30. ST ON MONITOR 110'S. FAINT/THREADY PULSES T/O. HANDS COLD TO THE TOUCH WITH CAP REFILL OVER 3 SECONDS. LLL 3+ PITTING EDEMA, STUMP VERY RED AND WARM TO TOUCH 3. RLL 2+ LYMPHEDEMA, RED WELL. PATIENTS FACE FRANTZ IN COLOR. MORALES DRAINING TO GRAVITY HUSAM IN COLOR. BUTTOCK WOUNDS, AND RLE WOUNDS NOTED IN CHART. PARTWAY THROUGH SHIFT, PATIENT SEEMED MORE ALERT. WOULD SAY "THANK YOU", AND MUMBLINGS WERE MORE CLEAR. BLOOD CULTURES (X2) RETURNED WITH GRAM POS COCCI IN CLUSTERS. LACTIC DOWN TO 1.7. FEVER RESOLVED TO BASELINE. WILL UPDATE CHANGES OCCUR.
[2021-08-07 13:23] LABS: Hemoglobin 11.2 g/dL (13.5-17.5); Mean Corpuscular HGB 24.2 pg (26.0-34.0); Mean Corpuscular HGB Conc 31.1 g/dL (31.5-36.5); Mean Corpuscular Volume 78 fL (80-100); Platelet Count 309 K/mm3 (150-400); RDW Coefficient Variation 15.4 % (11.7-14.2); RDW Standard Deviation 43.6 fL (35.1-46.3); Red Blood Cell Count 4.62 M/mm3 (4.30-5.90); White Blood Cell Count 12.41 K/mm3 (4.00-11.30)
[2021-08-07 14:14] LABS: BAND PERCENT MAN 3 % (0-8); BASOPHILS PERCENT MAN 0 % (0-2); EOSINOPHILS PERCENT MAN 0 % (0-6); LYMPHOCYTES ABSOLUTE MAN 0.62 K/mm3 (0.84-5.20); LYMPHOCYTES PERCENT MAN 5 % (21-46); METAMYELOCYTE ABSOLUTE MAN 0.12 K/mm3 (0.00-0.00); METAMYELOCYTE PERCENT MAN 1 % (0-0); MONOCYTES ABSOLUTE MAN 0.37 K/mm3 (0.16-1.47); MONOCYTES PERCENT MAN 3 % (4-13); NEUTROPHILS ABSOLUTE MAN 11.29 K/mm3 (1.96-9.15); SEG NEUTROPHILS PERCENT MAN 88 % (41-73); TOTAL CELLS COUNTED 100
[2021-08-07 14:20] LABS: Alanine Aminotransfer (ALT/SGP 93 U/L (12-78); Albumin, Blood 1.1 g/dL (3.4-5.0); Albumin/Globulin Ratio 0.2 (0.8-1.8); Alk Phos 181 U/L (50-136); Anion Gap 6 mmol/L (6-16); Aspartate Aminotrans (AST/SGOT 234 U/L (12-37); Bilirubin, Total 0.5 mg/dL (0.1-1.0); Blood Urea Nitrogen 12 mg/dL (8-24); Bun/Creatinine Ratio 24.9 (12.0-20.0); C-REACTIVE PROTEIN, EXT RANGE >19.000 mg/dL (0.000-0.300); CO2, Blood 30 mmol/L (21-32); Calcium, Blood 9.3 mg/dL (8.5-10.1); Chloride, Blood 101 mmol/L (98-108); Creatinine, Blood 0.48 mg/dL (0.60-1.20); Globulin, Blood 5.1 g/dL (2.2-4.0); Glomerular Filtration Rate >60 (60-); Glucose, Blood 154 mg/dL (70-99); Potassium, Blood 3.5 mmol/L (3.5-5.5); Sodium, Blood 137 mmol/L (136-145); Total Protein, Blood 6.2 g/dL (6.4-8.2)
--- NOTE | 2021-08-07 18:34 | NUR ---
PT REMAINS WITH AMS. PT IS ABLE TO ANSWER SOME QUESTIONS WITH 2-3 WORD ANSWERS. WHEN ARRIVED PT WAS ABLE TO TALK IN FRAGMENTED SENTENCES WITH . REDNESS TO LEGS APPEARS TO CONTINUE TO DECREASE T/O THE DAY, SKIN IS MARKED FOR THE REDNESS THAT WAS NOTED LAST NOC. VSS. NO 02 RATE CHANGES THIS SHIFT. PT DENIES CP OR SOB WHEN ASKED.
[2021-08-08 03:06] LABS: Alanine Aminotransfer (ALT/SGP 76 U/L (12-78); Albumin, Blood 0.9 g/dL (3.4-5.0); Albumin/Globulin Ratio 0.2 (0.8-1.8); Alk Phos 168 U/L (50-136); Anion Gap 7 mmol/L (6-16); Aspartate Aminotrans (AST/SGOT 170 U/L (12-37); Bilirubin, Total 0.4 mg/dL (0.1-1.0); Blood Urea Nitrogen 13 mg/dL (8-24); Bun/Creatinine Ratio 29.5 (12.0-20.0); CO2, Blood 27 mmol/L (21-32); Calcium, Blood 9.7 mg/dL (8.5-10.1); Chloride, Blood 103 mmol/L (98-108); Creatinine, Blood 0.44 mg/dL (0.60-1.20); Globulin, Blood 5.6 g/dL (2.2-4.0); Glomerular Filtration Rate >60 (60-); Glucose, Blood 176 mg/dL (70-99); Iron Serum 29 ug/dL (65-175); Percent Saturation 22.5 % (20.0-50.0); Potassium, Blood 3.6 mmol/L (3.5-5.5); Sodium, Blood 137 mmol/L (136-145); Total Iron Binding Capacity 129 ug/dL (250-450); Total Protein, Blood 6.5 g/dL (6.4-8.2)
[2021-08-08 03:16] LABS: BASOPHILS ABSOLUTE AUTO 0.03 K/mm3 (0.00-0.23); BASOPHILS PERCENT AUTO 0 % (0-2); EOSINOPHILS ABSOLUTE AUTO 0.04 K/mm3 (0.00-0.68); EOSINOPHILS PERCENT AUTO 0 % (0-6); Hematocrit 37.4 % (37.0-53.0); Hemoglobin 11.4 g/dL (13.5-17.5); IMMATURE GRAN ABSOLUTE AUTO 0.14 K/mm3 (0.00-0.10); IMMATURE GRAN PERCENT AUTO 1 % (0-1); LYMPHOCYTES ABSOLUTE AUTO 1.22 K/mm3 (0.84-5.20); LYMPHOCYTES PERCENT AUTO 10 % (21-46); MONOCYTES ABSOLUTE AUTO 0.55 K/mm3 (0.16-1.47); MONOCYTES PERCENT AUTO 5 % (4-13); Mean Corpuscular HGB 23.8 pg (26.0-34.0); Mean Corpuscular HGB Conc 30.5 g/dL (31.5-36.5); Mean Corpuscular Volume 78 fL (80-100); Mean Platelet Volume 9.9 fL (9.1-12.4); NEUTROPHILS ABSOLUTE AUTO 10.21 K/mm3 (1.96-9.15); NEUTROPHILS PERCENT AUTO 84 % (41-73); Platelet Count 275 K/mm3 (150-400); RDW Coefficient Variation 15.4 % (11.7-14.2); RDW Standard Deviation 43.5 fL (35.1-46.3); Red Blood Cell Count 4.79 M/mm3 (4.30-5.90); White Blood Cell Count 12.19 K/mm3 (4.00-11.30)
[2021-08-08 03:19] LABS: C-REACTIVE PROTEIN, EXT RANGE >19.000 mg/dL (0.000-0.300); Ferritin, Serum 2158 ng/mL (26-388)
--- NOTE | 2021-08-08 06:04 | NUR ---
SHIFT SUMMARY ASSUMED CARE OF PT AT 1900. PT IS A/OX4. PT WAS VERY LETHARGIC AT FIRST BUT THEN BECAME MORE AWAKE T/O THE NIGHT. PT IS VERY STIFF AND AND LIMITED MOVEMENT. HEART SOUNDS REGULAR, LUNG SOUNDS COARSE. PT IS ON RA. PT COMPLAINES OF WANTING WATER. PT HAS A MORALES DFRAINING DARK URINE. CALL LIGHT IN REACH, BED IN LOWEST POSITON.
--- NOTE | 2021-08-08 18:33 | NUR ---
SPEECH RE-EVAL COMPLETED- DIET ADVANCED. ABX ADJUSTED. AFEBRILE. NO C/O PAIN. FC MAINTAINED D/T STRICT I&O. NO BM. TOLERATING CURRENT DIET. FREQUENT ROUNDS TO ENSURE PT SAFETY. REPOSITIONED Q2HRS TO PREVENT PRESSURE ULCERS. PT IN NO APPARENT DISTRESS AT THIS TIME. WILL CONTINUE TO MONITOR UNTIL TRANSFER OF CARE TO ONCOMING RN.
[2021-08-09 04:02] LABS: BASOPHILS ABSOLUTE AUTO 0.05 K/mm3 (0.00-0.23); BASOPHILS PERCENT AUTO 0 % (0-2); EOSINOPHILS ABSOLUTE AUTO 0.05 K/mm3 (0.00-0.68); EOSINOPHILS PERCENT AUTO 0 % (0-6); Hematocrit 33.1 % (37.0-53.0); Hemoglobin 10.1 g/dL (13.5-17.5); Mean Corpuscular HGB 23.6 pg (26.0-34.0); Mean Corpuscular HGB Conc 30.5 g/dL (31.5-36.5); Mean Corpuscular Volume 77 fL (80-100); Mean Platelet Volume 10.1 fL (9.1-12.4); Platelet Count 344 K/mm3 (150-400); RDW Coefficient Variation 15.7 % (11.7-14.2); RDW Standard Deviation 43.8 fL (35.1-46.3); Red Blood Cell Count 4.28 M/mm3 (4.30-5.90)
[2021-08-09 04:09] LABS: IMMATURE GRAN PERCENT AUTO 2 % (0-1); LYMPHOCYTES ABSOLUTE AUTO 1.32 K/mm3 (0.84-5.20); LYMPHOCYTES PERCENT AUTO 11 % (21-46); MONOCYTES ABSOLUTE AUTO 0.37 K/mm3 (0.16-1.47); MONOCYTES PERCENT AUTO 3 % (4-13); NEUTROPHILS ABSOLUTE AUTO 10.11 K/mm3 (1.96-9.15); NEUTROPHILS PERCENT AUTO 84 % (41-73)
[2021-08-09 04:26] LABS: Alanine Aminotransfer (ALT/SGP 57 U/L (12-78); Albumin, Blood 0.9 g/dL (3.4-5.0); Albumin/Globulin Ratio 0.2 (0.8-1.8); Alk Phos 160 U/L (50-136); Anion Gap 6 mmol/L (6-16); Aspartate Aminotrans (AST/SGOT 96 U/L (12-37); Bilirubin, Total 0.4 mg/dL (0.1-1.0); Blood Urea Nitrogen 9 mg/dL (8-24); Bun/Creatinine Ratio 25.8 (12.0-20.0); CO2, Blood 28 mmol/L (21-32); Calcium, Blood 9.7 mg/dL (8.5-10.1); Chloride, Blood 98 mmol/L (98-108); Creatinine, Blood 0.35 mg/dL (0.60-1.20); Globulin, Blood 5.3 g/dL (2.2-4.0); Glomerular Filtration Rate >60 (60-); Glucose, Blood 252 mg/dL (70-99); Potassium, Blood 3.2 mmol/L (3.5-5.5); Sodium, Blood 132 mmol/L (136-145); Total Protein, Blood 6.2 g/dL (6.4-8.2)
[2021-08-09 04:41] LABS: C-REACTIVE PROTEIN, EXT RANGE >19.000 mg/dL (0.000-0.300)
--- NOTE | 2021-08-09 06:12 | NUR ---
SHIFT SUMMARY ASSUMED CARE OF PT AT 1900. PT IS A/OX3. HEART SOUNDS REGULAR. LUNG SOUNDS CLEAR. PT BODY REMAINS STIFF AND PT NECK CONTRACTED. PT HAS A FLOEY DRAINING WITH GRAVITY, URINE IS DARK HUSAM. PT BUTTOCK HAS BROKEN DOWN SKIN. PT ALSO HAS A WOUND ON R CALF, FOAM DRESSING APPLIED. PT EXTREMITIES REMAIN SWOLLEN AND WARM. PT RECEIVED A BEDBATH THIS PM. CALL LIGHT IN REACH, BED IN LOWEST POSITION.
--- NOTE | 2021-08-09 17:49 | NUR ---
MENTATION IMPROVING. REMAINS ON IV ABX. FC REMAINS IN PLACE FOR STRICT I&O MONITORING. BM X1. NO C/O PAIN. AFEBRILE. TOLERATING CURRENT DIET. FREQUENT ROUNDS TO ENSURE PT SAFETY. REPOSITIONED Q 2 HRS TO PREVENT PRESSURE ULCERS. PT IN NO APPARENT DISTRESS AT THIS TIME. WILL CONTINUE TO MONITOR UNTIL TRANSFER OF CARE TO ONCOMING RN.
--- NOTE | 2021-08-09 22:15 | NUR ---
PT WAS ALERT BUT A BIT GROGGY WHEN THIS NURSE WAS THERE FOR EVENING MEDS. PT WOULD WAKE UP BUT WHEN ASKED TO TAKE A SIP OF WATER HE WOUL PUT STRAW IN MOUTH BUT WOULD NOT SIP. AFTER A FEW ATTEMPTS HE WAS ABLE TO SIP BUT REPORTED THAT WATER WAS STUCK IN THROAT. PO MEDS WERE NOT GIVE PER CLINICAL JUDGEMENT. PT DENIES CHEST PAIN/PRESSURE OR GENERAL PAIN. DENIES FEELING SOB. VITALS ARE STABLE. BED ALARM ON. CALL LIGHT IS WITHIN REACH. WILL CONTINUE TO MONITOR.
[2021-08-10 05:01] LABS: Hematocrit 33.1 % (37.0-53.0); Hemoglobin 10.3 g/dL (13.5-17.5); Mean Corpuscular HGB Conc 31.1 g/dL (31.5-36.5); Mean Corpuscular Volume 77 fL (80-100); Mean Platelet Volume 9.5 fL (9.1-12.4); NRBC ABSOLUTE 0.02 K/mm3 (0.00-0.02); NRBC Auto 0.1 /100 WBC (0.0-0.2); Platelet Count 444 K/mm3 (150-400); RDW Coefficient Variation 15.7 % (11.7-14.2); RDW Standard Deviation 43.5 fL (35.1-46.3); White Blood Cell Count 14.17 K/mm3 (4.00-11.30)
[2021-08-10 05:36] LABS: Alanine Aminotransfer (ALT/SGP 53 U/L (12-78); Albumin/Globulin Ratio 0.2 (0.8-1.8); Alk Phos 167 U/L (50-136); Anion Gap 7 mmol/L (6-16); Aspartate Aminotrans (AST/SGOT 81 U/L (12-37); Bilirubin, Total 0.6 mg/dL (0.1-1.0); Blood Urea Nitrogen 9 mg/dL (8-24); Bun/Creatinine Ratio 25.4 (12.0-20.0); CO2, Blood 28 mmol/L (21-32); Calcium, Blood 9.5 mg/dL (8.5-10.1); Chloride, Blood 97 mmol/L (98-108); Creatinine, Blood 0.35 mg/dL (0.60-1.20); Globulin, Blood 5.6 g/dL (2.2-4.0); Glomerular Filtration Rate >60 (60-); Glucose, Blood 210 mg/dL (70-99); Potassium, Blood 3.1 mmol/L (3.5-5.5); Sodium, Blood 132 mmol/L (136-145); Total Protein, Blood 6.6 g/dL (6.4-8.2)
[2021-08-10 05:41] LABS: C-REACTIVE PROTEIN, EXT RANGE >19.000 mg/dL (0.000-0.300)
[2021-08-10 05:46] LABS: BAND PERCENT MAN 13 % (0-8); BASOPHILS PERCENT MAN 0 % (0-2); EOSINOPHILS PERCENT MAN 0 % (0-6); LYMPHOCYTES ABSOLUTE MAN 0.99 K/mm3 (0.84-5.20); LYMPHOCYTES PERCENT MAN 7 % (21-46); MONOCYTES ABSOLUTE MAN 0.56 K/mm3 (0.16-1.47); MONOCYTES PERCENT MAN 4 % (4-13); MYELOCYTE ABSOLUTE MAN 0.14 K/mm3 (0.00-0.00); MYELOCYTE PERCENT MAN 1 % (0-0); NEUTROPHILS ABSOLUTE MAN 12.46 K/mm3 (1.96-9.15); SEG NEUTROPHILS PERCENT MAN 75 % (41-73); TOTAL CELLS COUNTED 100
--- NOTE | 2021-08-10 07:32 | NUR ---
SHIFT SUMMARY PT IS ALERT WITH SOME CONFUSION AT TIMES. HE IS VERY PLEASANT. PT DENIES CHEST GRISEL/PRESSURE, GENERAL PAIN OR SOB. THERE HAVE BEEN NO ACUTE CHANGES. IV'S ARE SALINE LOCKED. VITALS ARE STABLE AND IS ON ROOM AIR. PT HAS MORALES CATHETER AND BRIEF ON. HE HAD A BM THIS AM. PT HAS A LEFT SIDED WEAKNESS. HE HAS BEEN ABLE TO SWALLOW PO MED THIS MORNING AND HAS BEEN DRINING WATER. DURING EVENING MEDS HE WAS UNABLE TO SIP WATER AND WAS GROGGY, MEDS WERE HELD. CALL LIGHT IS WITHIN REACH.
--- NOTE | 2021-08-10 15:25 | NUR ---
Initial Assessment with [facility] Community Trim Operator 1. Who did you speak with? Spoke with patient's Jessica 2. What is the patient's prior level of functions? Patient lives independently with , Jessica and father in law. assists with ADL's. Patient has a portable ramp on the residence, powered wheelchair, and toilet [place] river guide. Patient has a strong support network of family (two daughters and spouse). 3. What is the patient's current living situation? Patient lives with independently with his spouse. 4. Is the patient and/or family able to provide transportation to and from doctor's appointments and pick up truck driver prescriptions? Patient able to drive and has transportation. 5. Does patient still drive? Yes 6. POA/PCP/NOK: NOK: Jessica 7. ANTICIPATED DISCHARGE NEEDS/GOALS: TBD; awaiting PTOT recommendations 8. List barriers to discharge: No barriers on this date 9. Discharge Plan: TBD; patient's 's choice for HH is [facility] and SN[facility] 10. PCP Follow up appointment: Will be scheduled within seven calendar days of discharge. 11. OTHER COMMENTS: Patient is not a
--- NOTE | 2021-08-10 15:35 | NUR ---
reported slur that pt does not normally have. MD notified and STAT CT ordered. Neuro assessment done and pt has decreased sensation on left side of body. Pt has a hard time lifting left arm due to shoulder injury, but it did drift, but did not hit the bed (hard to tell if this is from injury). Pt is oriented x3. Alert/lethargic at times. Ataxia is present as well in right arm and not able to do assessment on left arm due to shoulder injury. Pt is pretty weak overall.
--- NOTE | 2021-08-10 18:14 | NUR ---
SHIFT NOTE: Pt is lethargic and sleeping most of the day, but does wake up and has been eating meal. Pt is oriented x3, pleasant with cares. Pt has had a slurr throughout the day and when the came in to visit, stated this was not normal for him. STAT head CT done and MRI ordered, unable to do MRI due to pain pump in abdomen. MACHINE TECHNICIAN evaluated pt and the diet is still mechanical soft with thin liquids allowed. Pt is still very weak. 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 Mishra in place due to retention. CBG in the 200s, sliding scale and lantus used per orders. Pt does have some appetite and has been trying to eat as much as he can with each meal. VSS on RA. No tele. No iso due to dx of COVID 07/06. IV abx continued per orders. Attempted to do as much of the NIHSS that I could. Pt has baseline injuries of left shoulder that makes it difficult to assess upper ext and also has weakness BLE making it diffificult to assess as well. Some ataxia noted and left sideded sensation deficit. Pt had several BMs in AM. Morphine pump in left side of abdomen. BKA on left side. 2 PIVs in right arm, flushing well.
--- NOTE | 2021-08-10 18:14 | NUR ---
PT HAD PAIN PUMP IN LEFT SIDE OF ABDOMEN. UNABLE TO GET MRI, DR. BAZAN NOTIFIED.
--- NOTE | 2021-08-10 21:45 | NUR ---
PT IS ALERT AND ORIENTED. SLOW TO RESPOND. REPORTS FEELING STIFF IN BED AND UNCOMFORTABLE. HE WAS CLEANED UP AND REPOSITIONED. PT HAD LARGE LOOSE STOOL. PT'S COCCYX/SACRUM IS VERY RED AND IRRITATED WITH BLOOD. MEPILEX APPLIED. PT HAS A LEFT SIDED WEAKNESS DUE TO SHOULDER INJURE. PT REPORTS HAVING CHROONIC BACK PAIN AND HAS A MORPHINE PUMP EMBEDDED ON LEFT ABDOMEN. MORALES CATHETER IS IN PLACE AND DRAINING TO GRAVITY. CRITICAL LAB VALUE FOR BLOOD CULTURE AND HAS BEEN REPORTED TO DR GTZ. CALL LIGHT IS WITHIN REACH.
--- NOTE | 2021-08-11 04:52 | NUR ---
SHIFT SUMMARY PT TRANSFERRED FROM [facility] @2210 LAST NIGHT. AOX3-PLACE, SELF, SITUATION. FORGETFUL OF DATE. FOLLOWS SIMPLE DIRECTIONS. GARBLED & SLURRED SPEECH @TIMES, DIFFICULT TO UNDERSTAND. L HAND CURRICULUM MANAGER WEAKER THEN R HAND. PT UNABLE TO LIFT L ARM UP OFF BED, CAN LIFT R ARM UP WITHOUT PROBLEM. HEAD TILTING TO R SHOULDER, ASKED PT TO MOVE IT & LOOK TO THE LEFT, PT UNABLE TO MOVE HEAD TO THE LEFT, STATES NECK MOVEMENT IS PAINFUL & RATES 5/10-GAVE 10MG FLEXERIL PER MAR. VSS. SPO2 >90% ON RA. DENIES N/V OR SOB. DEPENDENT EDEMA TO L HAND & L BKA STUMP, BOTH ELEVATED ON PILLOWS. MORALES PATENT & DRAINING DARK ORANGE URINE. CALL LIGHT & BED ALARM IN PLACE. WCTM UNTIL DAY NURSE ASSUMES CARE.
[2021-08-11 04:57] LABS: BASOPHILS ABSOLUTE AUTO 0.04 K/mm3 (0.00-0.23); BASOPHILS PERCENT AUTO 0 % (0-2); EOSINOPHILS ABSOLUTE AUTO 0.07 K/mm3 (0.00-0.68); EOSINOPHILS PERCENT AUTO 1 % (0-6); Hematocrit 33.1 % (37.0-53.0); IMMATURE GRAN ABSOLUTE AUTO 0.34 K/mm3 (0.00-0.10); IMMATURE GRAN PERCENT AUTO 3 % (0-1); LYMPHOCYTES ABSOLUTE AUTO 1.49 K/mm3 (0.84-5.20); LYMPHOCYTES PERCENT AUTO 13 % (21-46); MONOCYTES ABSOLUTE AUTO 0.39 K/mm3 (0.16-1.47); MONOCYTES PERCENT AUTO 3 % (4-13); Mean Corpuscular HGB 23.4 pg (26.0-34.0); Mean Corpuscular HGB Conc 30.2 g/dL (31.5-36.5); Mean Corpuscular Volume 77 fL (80-100); Mean Platelet Volume 9.3 fL (9.1-12.4); NEUTROPHILS ABSOLUTE AUTO 9.07 K/mm3 (1.96-9.15); NEUTROPHILS PERCENT AUTO 80 % (41-73); NRBC ABSOLUTE 0.03 K/mm3 (0.00-0.02); NRBC Auto 0.3 /100 WBC (0.0-0.2); Platelet Count 487 K/mm3 (150-400); RDW Standard Deviation 44.3 fL (35.1-46.3); Red Blood Cell Count 4.28 M/mm3 (4.30-5.90)
[2021-08-11 06:08] LABS: Alanine Aminotransfer (ALT/SGP 46 U/L (12-78); Albumin, Blood 1.1 g/dL (3.4-5.0); Albumin/Globulin Ratio 0.2 (0.8-1.8); Alk Phos 153 U/L (50-136); Anion Gap 9 mmol/L (6-16); Aspartate Aminotrans (AST/SGOT 67 U/L (12-37); Bilirubin, Total 0.6 mg/dL (0.1-1.0); Blood Urea Nitrogen 9 mg/dL (8-24); Bun/Creatinine Ratio 21.7 (12.0-20.0); CO2, Blood 28 mmol/L (21-32); Calcium, Blood 9.3 mg/dL (8.5-10.1); Chloride, Blood 97 mmol/L (98-108); Creatinine, Blood 0.41 mg/dL (0.60-1.20); Globulin, Blood 4.9 g/dL (2.2-4.0); Glomerular Filtration Rate >60 (60-); Glucose, Blood 184 mg/dL (70-99); Magnesium, Blood 1.8 mg/dL (1.6-2.4); Potassium, Blood 3.4 mmol/L (3.5-5.5); Sodium, Blood 134 mmol/L (136-145)
--- NOTE | 2021-08-11 18:44 | NUR ---
PT AWAKE OFF AND ON, ABLE TO MAKE HIS NEEDS KNOWN WHEN AWAKE, VERY POOR APPETITE, NO ACUTE CHANGES NOTED THIS SHIFT
--- NOTE | 2021-08-12 03:57 | NUR ---
SHIFT SUMMARY NO ACUTE CHANGES THIS SHIFT. AOX3. SPEECH MORE CLEAR TONIGHT THEN PREVIOUS NIGHT. L HAND CHALK TESTER WEAKER THEN RIGHT HAND. VSS. REPORTS BACK & NECK PAIN, MEDICATED 1X c FLEXERIL & PT ABLE TO REST COMFORTABLY. MORALES PATENT DRAINING DARK ORANGE URINE. HS CBG @188. PT VERY WEAK & DECONDITIONED, 2 ASSIST TO REPOSITION. CALL LIGHT & BED ALARM IN PLACE. WCTM.
[2021-08-12 08:06] LABS: BASOPHILS ABSOLUTE AUTO 0.02 K/mm3 (0.00-0.23); BASOPHILS PERCENT AUTO 0 % (0-2); EOSINOPHILS ABSOLUTE AUTO 0.04 K/mm3 (0.00-0.68); EOSINOPHILS PERCENT AUTO 0 % (0-6); Hematocrit 31.1 % (37.0-53.0); Hemoglobin 9.5 g/dL (13.5-17.5); IMMATURE GRAN ABSOLUTE AUTO 0.27 K/mm3 (0.00-0.10); IMMATURE GRAN PERCENT AUTO 3 % (0-1); LYMPHOCYTES ABSOLUTE AUTO 1.43 K/mm3 (0.84-5.20); LYMPHOCYTES PERCENT AUTO 14 % (21-46); MONOCYTES ABSOLUTE AUTO 0.44 K/mm3 (0.16-1.47); MONOCYTES PERCENT AUTO 4 % (4-13); Mean Corpuscular HGB 23.9 pg (26.0-34.0); Mean Corpuscular HGB Conc 30.5 g/dL (31.5-36.5); Mean Corpuscular Volume 78 fL (80-100); Mean Platelet Volume 9.2 fL (9.1-12.4); NEUTROPHILS PERCENT AUTO 79 % (41-73); NRBC ABSOLUTE 0.03 K/mm3 (0.00-0.02); NRBC Auto 0.3 /100 WBC (0.0-0.2); Platelet Count 466 K/mm3 (150-400); RDW Coefficient Variation 16.1 % (11.7-14.2); RDW Standard Deviation 45.4 fL (35.1-46.3); Red Blood Cell Count 3.97 M/mm3 (4.30-5.90)
[2021-08-12 08:24] LABS: Magnesium, Blood 2.1 mg/dL (1.6-2.4)
[2021-08-12 08:26] LABS: Alanine Aminotransfer (ALT/SGP 32 U/L (12-78); Albumin, Blood 1.1 g/dL (3.4-5.0); Albumin/Globulin Ratio 0.2 (0.8-1.8); Alk Phos 134 U/L (50-136); Anion Gap 5 mmol/L (6-16); Aspartate Aminotrans (AST/SGOT 43 U/L (12-37); Bilirubin, Total 0.5 mg/dL (0.1-1.0); Blood Urea Nitrogen 10 mg/dL (8-24); Bun/Creatinine Ratio 23.5 (12.0-20.0); CO2, Blood 31 mmol/L (21-32); Calcium, Blood 8.9 mg/dL (8.5-10.1); Chloride, Blood 101 mmol/L (98-108); Creatinine, Blood 0.43 mg/dL (0.60-1.20); Globulin, Blood 4.6 g/dL (2.2-4.0); Glomerular Filtration Rate >60 (60-); Glucose, Blood 214 mg/dL (70-99); Potassium, Blood 3.2 mmol/L (3.5-5.5); Sodium, Blood 137 mmol/L (136-145); Total Protein, Blood 5.7 g/dL (6.4-8.2)
--- NOTE | 2021-08-12 16:13 | NUR ---
PT IS A/OX3, PLEASANT AND COOPERATIVE, SOFT SPOKEN. THE PT IS SOMULANT AND DROWSY MORE SO TODAY COMPARED TO YESTERDAY PER THE PATIENTS AND THE PHYSICAL THERAPIST. THIS AM THE PT DENIED PAIN, HOWEVER. HE HAS BACK PAIN WITH TRANSFERS. PT HAS A MORPHINE PAIN PUMP MID ABD. THE PT LEFT BKA STUMP IS SWOLLEN AND HAS REDNESS RIGHT LEG REDNESS AND SWELLING. THE PT LEFT ARM WAS NOTICED TO BE INCREASINGLY SWOLLEN DR. BAZAN WAS CALLED AND A US WAS ORDERED NO PE FOUND. THE PTS LEFT ARM IS ELEVATED AT THIS TIME. PT APPEARS TO BE BREATHING EASILY ON RA AT THIS TIME. IS AT THE BEDSIDE. CALL LIGHT IN REACH
--- NOTE | 2021-08-13 04:54 | NUR ---
PT IS A/O TO SELF. VERY FORGETFUL AND IMPULSIVE DURING THE NOC SHIFT. SOFT WR RESTRAINTS NEEDED. Q2 RESTRAINT DOCUMENTATION DONE. HEPARIN GTT IN RT AC (NEW LINE). NOT OOB ON SHIFT, ATTENDS IN PLACE (INCONTINENT). TELE: SR. BED IN LOWEST POSITION AND ALARM IS SET.
--- NOTE | 2021-08-13 05:04 | NUR ---
PT IS A/OX3. HE REMAINS ON BEDREST W/ Q2 TURNS. TELE: SR. CELLULITIS/ERYTHEMA TO LE IS RESOLVING. LF ARM IS SWOLLEN, BUT A VENOUS DOPPLER WAS - FOR VENOUS THROMBOSIS. MORALES IS IN PLACE AND NO BM THIS SHIFT.
[2021-08-13 09:43] LABS: BASOPHILS ABSOLUTE AUTO 0.05 K/mm3 (0.00-0.23); BASOPHILS PERCENT AUTO 0 % (0-2); EOSINOPHILS ABSOLUTE AUTO 0.04 K/mm3 (0.00-0.68); EOSINOPHILS PERCENT AUTO 0 % (0-6); Hematocrit 34.1 % (37.0-53.0); Hemoglobin 10.2 g/dL (13.5-17.5); IMMATURE GRAN ABSOLUTE AUTO 0.24 K/mm3 (0.00-0.10); IMMATURE GRAN PERCENT AUTO 2 % (0-1); LYMPHOCYTES ABSOLUTE AUTO 1.63 K/mm3 (0.84-5.20); LYMPHOCYTES PERCENT AUTO 14 % (21-46); MONOCYTES ABSOLUTE AUTO 0.45 K/mm3 (0.16-1.47); MONOCYTES PERCENT AUTO 4 % (4-13); Mean Corpuscular HGB 23.7 pg (26.0-34.0); Mean Corpuscular HGB Conc 29.9 g/dL (31.5-36.5); Mean Corpuscular Volume 79 fL (80-100); Mean Platelet Volume 8.9 fL (9.1-12.4); NEUTROPHILS ABSOLUTE AUTO 9.66 K/mm3 (1.96-9.15); NEUTROPHILS PERCENT AUTO 80 % (41-73); NRBC ABSOLUTE 0.05 K/mm3 (0.00-0.02); NRBC Auto 0.4 /100 WBC (0.0-0.2); Platelet Count 515 K/mm3 (150-400); RDW Coefficient Variation 16.3 % (11.7-14.2); RDW Standard Deviation 46.5 fL (35.1-46.3); White Blood Cell Count 12.07 K/mm3 (4.00-11.30)
[2021-08-13 09:50] LABS: Alanine Aminotransfer (ALT/SGP 30 U/L (12-78); Albumin, Blood 1.2 g/dL (3.4-5.0); Albumin/Globulin Ratio 0.2 (0.8-1.8); Alk Phos 136 U/L (50-136); Anion Gap 10 mmol/L (6-16); Aspartate Aminotrans (AST/SGOT 44 U/L (12-37); Bilirubin, Total 0.5 mg/dL (0.1-1.0); Blood Urea Nitrogen 11 mg/dL (8-24); Bun/Creatinine Ratio 23.9 (12.0-20.0); CO2, Blood 30 mmol/L (21-32); Calcium, Blood 9.3 mg/dL (8.5-10.1); Chloride, Blood 100 mmol/L (98-108); Creatinine, Blood 0.46 mg/dL (0.60-1.20); Globulin, Blood 5.4 g/dL (2.2-4.0); Glomerular Filtration Rate >60 (60-); Glucose, Blood 229 mg/dL (70-99); Magnesium, Blood 2.1 mg/dL (1.6-2.4); Potassium, Blood 3.4 mmol/L (3.5-5.5); Sodium, Blood 140 mmol/L (136-145); Total Protein, Blood 6.6 g/dL (6.4-8.2)
--- NOTE | 2021-08-13 18:26 | NUR ---
PT IS A/OX3, PLEASANT AND COOPERATIVE. PT HAS BEEN SOFT SPOKEN AND SOMULANT T/O THE DAY. PT HAS WEAKNESS AND IS UNABLE TO EAT WITHOUT ASSISTANCE.. THE PT HAS BEEN BEDREST T/O THE DAY. THE PTS COCCYX WOUND DRESSING WAS CHANGED TODAY. DR. BAZAN ASSESSED THE WOUND. BARRIAR CREAM AND A FOAM DRESSING WAS APPLIED. THIS AFTERNOON THE PT HAD A ACE AT THE BEDSIDE. THE PT TOLERATED THE PROCEDURE WELL HOWEVER WAS VERY SEDATED AFTER NOT ABLE TO STAY AWAKE FOR DINNER. THE OREDERED PO PATASSIUM AND NSTATIN SWISH AND SWALLOW WAS HELD DUE TO ASPIRATION RISK. PTS WAS AT THE BEDSIDE FROM 2PM TO 6PM. CALL LIGHT IN REACH WILL CONTINUE TO MONITOR AND ASSESS FOR CHANGES
--- NOTE | 2021-08-14 04:38 | NUR ---
SHIFT SUMMARY: PT IS A/OX3. SLURRED SPEECH, BUT DOING MUCH BETTER. DIET WAS ADVANCED TO THIN LIQUIDS W/ STRAW--SMALL SIPS--DEADENER INSTRUCTIONS ON WHITE BOARD. LE STILL ERYTHEMIC. DECUB SACRAL AREA HAS MEPILEX CDI CHANGED 08/13. PT VERY FATIGUED SINCE ACE, BUT IS EASILY AROUSABLE.
[2021-08-14 05:21] LABS: BASOPHILS ABSOLUTE AUTO 0.04 K/mm3 (0.00-0.23); BASOPHILS PERCENT AUTO 0 % (0-2); EOSINOPHILS ABSOLUTE AUTO 0.05 K/mm3 (0.00-0.68); EOSINOPHILS PERCENT AUTO 0 % (0-6); Hematocrit 33.4 % (37.0-53.0); Hemoglobin 9.9 g/dL (13.5-17.5); IMMATURE GRAN ABSOLUTE AUTO 0.14 K/mm3 (0.00-0.10); IMMATURE GRAN PERCENT AUTO 1 % (0-1); LYMPHOCYTES ABSOLUTE AUTO 1.65 K/mm3 (0.84-5.20); LYMPHOCYTES PERCENT AUTO 14 % (21-46); MONOCYTES ABSOLUTE AUTO 0.44 K/mm3 (0.16-1.47); MONOCYTES PERCENT AUTO 4 % (4-13); Mean Corpuscular HGB 23.7 pg (26.0-34.0); Mean Corpuscular HGB Conc 29.6 g/dL (31.5-36.5); Mean Corpuscular Volume 80 fL (80-100); Mean Platelet Volume 8.9 fL (9.1-12.4); NEUTROPHILS PERCENT AUTO 80 % (41-73); NRBC ABSOLUTE 0.03 K/mm3 (0.00-0.02); NRBC Auto 0.3 /100 WBC (0.0-0.2); Platelet Count 466 K/mm3 (150-400); RDW Coefficient Variation 16.3 % (11.7-14.2); RDW Standard Deviation 46.5 fL (35.1-46.3); Red Blood Cell Count 4.18 M/mm3 (4.30-5.90); White Blood Cell Count 11.82 K/mm3 (4.00-11.30)
[2021-08-14 06:32] LABS: Alanine Aminotransfer (ALT/SGP 28 U/L (12-78); Albumin, Blood 1.2 g/dL (3.4-5.0); Albumin/Globulin Ratio 0.2 (0.8-1.8); Alk Phos 128 U/L (50-136); Anion Gap 9 mmol/L (6-16); Aspartate Aminotrans (AST/SGOT 52 U/L (12-37); Bilirubin, Total 0.4 mg/dL (0.1-1.0); Blood Urea Nitrogen 12 mg/dL (8-24); Bun/Creatinine Ratio 25.6 (12.0-20.0); CO2, Blood 31 mmol/L (21-32); Calcium, Blood 9.4 mg/dL (8.5-10.1); Chloride, Blood 101 mmol/L (98-108); Creatinine, Blood 0.47 mg/dL (0.60-1.20); Globulin, Blood 5.1 g/dL (2.2-4.0); Glomerular Filtration Rate >60 (60-); Glucose, Blood 123 mg/dL (70-99); Potassium, Blood 3.4 mmol/L (3.5-5.5); Sodium, Blood 141 mmol/L (136-145); Total Protein, Blood 6.3 g/dL (6.4-8.2)
--- NOTE | 2021-08-14 17:05 | NUR ---
SHIFT SUMMARY PATIENT DENIES PAIN, NAUSEA, AND SHORTNESS OF BREATH. PATIENT HAS BEEN UNABLE TO STAND. PATIENT DID WORK WITH PT, BUT WAS DIFFICULT TO KEEP AWAKE. PATIENT SLEPT MOST OF MY SHIFT. SPEECH THERAPY ALSO SAW PATIENT TODAY. PATIENT IS EATING AND DRINKING WELL WHEN AWAKE. MORALES IS PATENT AND DRAINING TO GRAVITY. PATIENT IS PLEASANT AND COOPERATIVE WITH CARE. NEW ORDER FOR PICC LINE PLACEMENT. UNABLE TO ACCOMPLISH TODAY DUE TO NO STAFF HERE TO PLACE ONE.
--- NOTE | 2021-08-15 05:41 | NUR ---
SHIFT SUMMARY: A/OX3, CONTINUED BEDREST, BUT WORKING W/ PT. VERY FATIGUED; EASILIY AROUSABLE. PICC PLACEMENT ORDER IN FOR 4-6 WEEKS ABX. PT HAS BEEN REPOSITIONED Q2, MEPILEX DRESSING IS CDI. HE IS DRINKING SMALL SIPS OF H2O FROM A STRAW VERY WELL. WE'LL CONTINUE TO MONITOR.
[2021-08-15 09:11] LABS: Alanine Aminotransfer (ALT/SGP 20 U/L (12-78); Albumin, Blood 1.1 g/dL (3.4-5.0); Albumin/Globulin Ratio 0.2 (0.8-1.8); Alk Phos 122 U/L (50-136); Anion Gap 5 mmol/L (6-16); Aspartate Aminotrans (AST/SGOT 35 U/L (12-37); Bilirubin, Direct 0.3 mg/dL (0.0-0.3); Bilirubin, Indirect 0.6 mg/dL (0.1-0.7); Bilirubin, Total 0.9 mg/dL (0.1-1.0); Blood Urea Nitrogen 11 mg/dL (8-24); Bun/Creatinine Ratio 26.2 (12.0-20.0); CO2, Blood 32 mmol/L (21-32); Calcium, Blood 9.1 mg/dL (8.5-10.1); Chloride, Blood 100 mmol/L (98-108); Creatinine, Blood 0.42 mg/dL (0.60-1.20); Globulin, Blood 4.9 g/dL (2.2-4.0); Glomerular Filtration Rate >60 (60-); Glucose, Blood 156 mg/dL (70-99); Potassium, Blood 3.6 mmol/L (3.5-5.5); Sodium, Blood 137 mmol/L (136-145)
[2021-08-16 04:55] LABS: BASOPHILS ABSOLUTE AUTO 0.02 K/mm3 (0.00-0.23); BASOPHILS PERCENT AUTO 0 % (0-2); EOSINOPHILS PERCENT AUTO 1 % (0-6); Hematocrit 30.1 % (37.0-53.0); Hemoglobin 8.7 g/dL (13.5-17.5); IMMATURE GRAN PERCENT AUTO 1 % (0-1); LYMPHOCYTES ABSOLUTE AUTO 1.87 K/mm3 (0.84-5.20); LYMPHOCYTES PERCENT AUTO 19 % (21-46); MONOCYTES ABSOLUTE AUTO 0.61 K/mm3 (0.16-1.47); MONOCYTES PERCENT AUTO 6 % (4-13); Mean Corpuscular HGB 23.3 pg (26.0-34.0); Mean Corpuscular HGB Conc 28.9 g/dL (31.5-36.5); Mean Corpuscular Volume 81 fL (80-100); Mean Platelet Volume 8.9 fL (9.1-12.4); NEUTROPHILS ABSOLUTE AUTO 7.26 K/mm3 (1.96-9.15); NEUTROPHILS PERCENT AUTO 73 % (41-73); Platelet Count 479 K/mm3 (150-400); RDW Coefficient Variation 16.6 % (11.7-14.2); RDW Standard Deviation 48.5 fL (35.1-46.3); Red Blood Cell Count 3.73 M/mm3 (4.30-5.90); White Blood Cell Count 9.96 K/mm3 (4.00-11.30)
--- NOTE | 2021-08-16 05:05 | NUR ---
PATIENT HAS RESTED MOST OF SHIFT. A&O X2 PERSON AND PLACE. EASILY FATIGUED. Q2 HR REPOSITIONING. MEPOLEX CDI TO COCCYX. VITALS REVIEWED. CALL LIGHT IN REACH. BED ALARM SET.
[2021-08-16 05:27] LABS: Alanine Aminotransfer (ALT/SGP 18 U/L (12-78); Albumin, Blood 1.2 g/dL (3.4-5.0); Albumin/Globulin Ratio 0.2 (0.8-1.8); Alk Phos 120 U/L (50-136); Anion Gap 8 mmol/L (6-16); Aspartate Aminotrans (AST/SGOT 36 U/L (12-37); Bilirubin, Total 0.5 mg/dL (0.1-1.0); Blood Urea Nitrogen 13 mg/dL (8-24); Bun/Creatinine Ratio 30.6 (12.0-20.0); CO2, Blood 30 mmol/L (21-32); Calcium, Blood 9.4 mg/dL (8.5-10.1); Chloride, Blood 100 mmol/L (98-108); Creatinine, Blood 0.43 mg/dL (0.60-1.20); Globulin, Blood 5.1 g/dL (2.2-4.0); Glomerular Filtration Rate >60 (60-); Glucose, Blood 169 mg/dL (70-99); Potassium, Blood 3.9 mmol/L (3.5-5.5); Sodium, Blood 138 mmol/L (136-145); Total Protein, Blood 6.3 g/dL (6.4-8.2)
[2021-08-17 01:09] LABS: Adenovirus F 40/41 Not Detected (NOT DETECT); Astrovirus Not Detected (NOT DETECT); Campylobacter Sp Not Detected (NOT DETECT); Cryptosporidium Not Detected (NOT DETECT); Cyclospora Cayetanensis Not Detected (NOT DETECT); E. Coli O157 Not Detected (NOT DETECT); Entamoeba Histolytica Not Detected (NOT DETECT); Enteroaggregative E. coli-EAEC Not Detected (NOT DETECT); Enteropathogenic E. coli-EPEC Not Detected (NOT DETECT); Enterotoxigenic E. coli-ETEC Not Detected (NOT DETECT); Giardia Lamblia Not Detected (NOT DETECT); Norovirus GI/GII Not Detected (NOT DETECT); Plesiomonas Shigelloides Not Detected (NOT DETECT); Rotavirus A Not Detected (NOT DETECT); Salmonella Sp Not Detected (NOT DETECT); Sapovirus Not Detected (NOT DETECT); Shiga Toxin-prod E. coli-STEC Not Detected (NOT DETECT); Shigella/Enteroin E. coli-EIEC Not Detected (NOT DETECT); Vibrio Cholerae Not Detected (NOT DETECT); Vibrio Sp Not Detected (NOT DETECT); Yersinia Enterocolitica Not Detected (NOT DETECT)
[2021-08-17 04:44] LABS: BASOPHILS ABSOLUTE AUTO 0.03 K/mm3 (0.00-0.23); BASOPHILS PERCENT AUTO 0 % (0-2); EOSINOPHILS ABSOLUTE AUTO 0.14 K/mm3 (0.00-0.68); EOSINOPHILS PERCENT AUTO 2 % (0-6); Hematocrit 29.5 % (37.0-53.0); Hemoglobin 8.6 g/dL (13.5-17.5); IMMATURE GRAN PERCENT AUTO 1 % (0-1); LYMPHOCYTES ABSOLUTE AUTO 2.25 K/mm3 (0.84-5.20); LYMPHOCYTES PERCENT AUTO 24 % (21-46); MONOCYTES ABSOLUTE AUTO 0.61 K/mm3 (0.16-1.47); MONOCYTES PERCENT AUTO 7 % (4-13); Mean Corpuscular HGB 23.7 pg (26.0-34.0); Mean Corpuscular HGB Conc 29.2 g/dL (31.5-36.5); Mean Corpuscular Volume 81 fL (80-100); Mean Platelet Volume 8.7 fL (9.1-12.4); NEUTROPHILS ABSOLUTE AUTO 6.24 K/mm3 (1.96-9.15); NEUTROPHILS PERCENT AUTO 67 % (41-73); Platelet Count 454 K/mm3 (150-400); RDW Coefficient Variation 16.2 % (11.7-14.2); RDW Standard Deviation 48.2 fL (35.1-46.3); Red Blood Cell Count 3.63 M/mm3 (4.30-5.90); White Blood Cell Count 9.37 K/mm3 (4.00-11.30)
--- NOTE | 2021-08-17 05:35 | NUR ---
PATIENT REPORTED BACK PAIN THIS SHIFT. TREATED PER OCT. POWERGLIDE HAD TO BE ADJUSTED AND IS NOW PATENT AND DRAWING WELL. DRESSING CHANGED. PATIENTS STOOL SPECIMEN WAS NEGATIVE. Q2 HR TURN AND CHECKS COMPLETED. VITALS REVIEWED. CALL LIGHT IN REACH.
[2021-08-17 06:03] LABS: Alanine Aminotransfer (ALT/SGP 21 U/L (12-78); Albumin, Blood 1.1 g/dL (3.4-5.0); Albumin/Globulin Ratio 0.2 (0.8-1.8); Alk Phos 112 U/L (50-136); Anion Gap 6 mmol/L (6-16); Aspartate Aminotrans (AST/SGOT 39 U/L (12-37); Bilirubin, Total 0.4 mg/dL (0.1-1.0); Blood Urea Nitrogen 9 mg/dL (8-24); Bun/Creatinine Ratio 22.7 (12.0-20.0); CO2, Blood 32 mmol/L (21-32); Chloride, Blood 100 mmol/L (98-108); Glomerular Filtration Rate >60 (60-); Glucose, Blood 132 mg/dL (70-99); Potassium, Blood 3.9 mmol/L (3.5-5.5); Sodium, Blood 138 mmol/L (136-145); Total Protein, Blood 6.1 g/dL (6.4-8.2)
--- NOTE | 2021-08-18 03:46 | NUR ---
PATIENT WAS SITTING UP AND ALERT AT THE START OF THE SHIFT. VERY CONVERSATIONAL THIS SHIFT. REPORST HIS MOUTH IS FEELING SOME BETTER. A&O TO PERSON, PLACE AND SITUATION. VERABLIZED NO QUESTIONS OR CONCERNS. TOOK ALL PM MEDICATIONS AND TOLERATED WELL. CALL LIGHT IN REACH.
[2021-08-18 04:49] LABS: BASOPHILS ABSOLUTE AUTO 0.05 K/mm3 (0.00-0.23); BASOPHILS PERCENT AUTO 1 % (0-2); EOSINOPHILS ABSOLUTE AUTO 0.11 K/mm3 (0.00-0.68); EOSINOPHILS PERCENT AUTO 1 % (0-6); Hematocrit 29.1 % (37.0-53.0); Hemoglobin 8.4 g/dL (13.5-17.5); IMMATURE GRAN ABSOLUTE AUTO 0.12 K/mm3 (0.00-0.10); IMMATURE GRAN PERCENT AUTO 1 % (0-1); LYMPHOCYTES ABSOLUTE AUTO 2.11 K/mm3 (0.84-5.20); LYMPHOCYTES PERCENT AUTO 25 % (21-46); MONOCYTES ABSOLUTE AUTO 0.68 K/mm3 (0.16-1.47); MONOCYTES PERCENT AUTO 8 % (4-13); Mean Corpuscular HGB 23.1 pg (26.0-34.0); Mean Corpuscular HGB Conc 28.9 g/dL (31.5-36.5); Mean Corpuscular Volume 80 fL (80-100); Mean Platelet Volume 8.7 fL (9.1-12.4); NEUTROPHILS ABSOLUTE AUTO 5.51 K/mm3 (1.96-9.15); NEUTROPHILS PERCENT AUTO 64 % (41-73); Platelet Count 501 K/mm3 (150-400); RDW Coefficient Variation 16.3 % (11.7-14.2); RDW Standard Deviation 47.9 fL (35.1-46.3); Red Blood Cell Count 3.63 M/mm3 (4.30-5.90); White Blood Cell Count 8.58 K/mm3 (4.00-11.30)
[2021-08-18 06:14] LABS: Alanine Aminotransfer (ALT/SGP 27 U/L (12-78); Albumin, Blood 1.2 g/dL (3.4-5.0); Albumin/Globulin Ratio 0.2 (0.8-1.8); Alk Phos 122 U/L (50-136); Anion Gap 6 mmol/L (6-16); Aspartate Aminotrans (AST/SGOT 48 U/L (12-37); Bilirubin, Total 0.6 mg/dL (0.1-1.0); Blood Urea Nitrogen 10 mg/dL (8-24); Bun/Creatinine Ratio 26.9 (12.0-20.0); CO2, Blood 32 mmol/L (21-32); Calcium, Blood 9.1 mg/dL (8.5-10.1); Chloride, Blood 98 mmol/L (98-108); Creatinine, Blood 0.37 mg/dL (0.60-1.20); Globulin, Blood 5.3 g/dL (2.2-4.0); Glomerular Filtration Rate >60 (60-); Glucose, Blood 152 mg/dL (70-99); Potassium, Blood 4.1 mmol/L (3.5-5.5); Sodium, Blood 136 mmol/L (136-145); Total Protein, Blood 6.5 g/dL (6.4-8.2)
--- NOTE | 2021-08-19 06:08 | NUR ---
PATIRNT HAS BEEN MUCH MORE ALERT THIS SHIFT. ABLE TO MAKE NEEDS KNOWN TO STAFF CLEARLY NOW. Q2 HR TURN AND CHECK. PATIENT REPORTED BACK PAIN AND STIFFNESS. TREATED PER OCT. TOOK ALL MEDICATIONS WITH WATER ONE PILL AT A TIME AND TOLERATED WELL. VITALS REVIEWED. CALL LIGHT IN REACH.
--- NOTE | 2021-08-19 18:33 | NUR ---
SUMMARY- PT A/O X3- CONFUSED RELATED TO DETAILS AND SPECIFIC DATE. BEDREST TODAY. MORALES CATH WITH MED CLEAR YELLOW URINE. RED IN GROIN, CLEANSED AND APPLIED POWER. MORALES CATH CARE. PT FEEDS SELF, TOLERATING FOOD AND FOUIDS. LAST BM 08/18. ORAL THRUSH CLEARING BUT STILL SOME DISCOMFORT WITH ACIDIC FOODS. PLAN FOR F/U BLOOD CX AND PLACE PICC FOR GROUP HOME ABX RELATED TO VEGITATION ON VALVE. LIKELY TOMORROW PICC AND DC.
--- NOTE | 2021-08-20 04:34 | NUR ---
PATIENT HAD AN UNEVENTFUL SHIFT. DESPITE HIS CONVERSATION WITH SPEECH THE PATIENT WILL ONLY TAKE HIS MEDICATIONS WITH WATER, NOT PUDDING. HE SAYS THE PUDDING MAKES THEM DIFFICULT TO GET DOWN. PROTECTIVE MEPOLEX TO COCCYX AND BACK OF R CALF. Q2 HR TURN AND CHANGE. POWERGLIDE HAS BEEN POSITONAL THIS SHIFT. STILL AWAITING BLOOD CULTURE RESULTS. VIATLS REVIEWED. CALL LIGHT IN REACH.
[2021-08-20 15:21] LABS: Anion Gap 4 mmol/L (6-16); Blood Urea Nitrogen 12 mg/dL (8-24); Bun/Creatinine Ratio 32.7 (12.0-20.0); CO2, Blood 33 mmol/L (21-32); Chloride, Blood 97 mmol/L (98-108); Creatinine, Blood 0.37 mg/dL (0.60-1.20); Glomerular Filtration Rate >60 (60-); Glucose, Blood 219 mg/dL (70-99); Potassium, Blood 4.2 mmol/L (3.5-5.5); Sodium, Blood 134 mmol/L (136-145)
--- NOTE | 2021-08-20 19:26 | NUR ---
SUMM- UNABLE TO PLACE PICC AFTER MULT ATTEMPT TO PASS R ARM. NOTIFIED DR DODD. PLAN FOR SNF WHEN BED AVAIL 08/21. PT WORKED WITH PT TODAY AND SAT AT EDGE OF BED. ORAL THRUSH CLEARING WITH NYSTATIN TOLERATING FOOD AND FLUIDS. MORALES FOR RETENTION CLEAR YELLOW, CATH CARE COMPLETE. MEPILEX INTACT TO BACK SIDE. SIDE TO SIDE TURNS ESCEPT FOR MEALS. PAIN CONTROLLED WITH IMPLANTED MS PUMP.
--- NOTE | 2021-08-20 20:46 | NUR ---
MEDS GIVEN WHOLE WITH APPLESAUCE AND HOB ELEVATED. NO CHOKING NOTED. PT TOLERATED WELL FOLLOWED BY SIPS OF WATER VIA STRAW.
--- NOTE | 2021-08-21 00:01 | NUR ---
ABX HUNG AND PT REPOSITIONED FOR COMFORT. WATER GIVEN. PT ABLE TO SIP THROUGH STRAW WITHOUT CHOKING WITH HOB ELEVATED. MORALES CATHETER PATENT AND DRAINING YELLOW URINE. NO OTHER NEEDS. CALL LT IN REACH.
--- NOTE | 2021-08-21 03:52 | NUR ---
SHIFT SUMMARY: MEDICATED PT ONCE WITH TYLENOL FOR HEADACHE AND FLEXERIL FOR NECK PAIN WITH FAIR RESULTS. PT REPOSITIONED MANY TIMES THROUGHOUT SHIFT FOR COMFORT WITH PILLOWS. TOLERATED MED PASS WELL, MEDS GIVEN WHOLE ONE AT A TIME IN APPLESAUCE FOLLOWED BY SIPS OF WATER VIA STRAW, NO COUGHING OR CHOKING NOTED. MORALES CATHETER PATENT AND DRAINING. ON RA. NO ACUTE CHANGES. WILL CONTINUE TO PROVIDE CARE UNTIL SHIFT REPORT.
--- NOTE | 2021-08-21 12:13 | NUR ---
Pt. was alert and watching TV in bed and welcomed my visit. Facilitated a life review focusing on health issues that led to his hospitialization. Listened empathetically. Rapport was established. Brought pt. a message from his mother that was received via phone the previous day. Identified family unit complications. Provided a calming presence and pastoral counseling. Explored issues of christie and belief. Pt. displayed evidence of encouragement. Pt. verbalized receptivity to pastoral family counselor. Prayed with pt. Will monitor and pursue elements of personal christie with pt.
--- NOTE | 2021-08-21 17:49 | NUR ---
SHIFT SUMMARY PT IS A&O, PLEASANT AND CO-OP WITH CARE. VERY WEAK AND DECONDITIONED. LACKS MOTIVATION TO IMPROVE OR HELP HIMSELF. PT NEEDING 6 MORE WEEKS OF IV ABX AND WAITING FOR SNF PLACEMENT. STAGE ll SACRAL WOUND. PT FLOATED ON PILLOWS ALL DAY LONG. ADJUSTED CONSTANTLY. PT VERY NEEDY AND WANTING ADJUSTED FREQUENTLY. ABLE TO SIT UP TO EOB AND DANGLE WITH PT/OT TODAY. PT ABLE TO FEED HIMSELF WELL, BUT WILL TRY TO GET STAFF TO DO MUCH POSSIBLE FOR HIM. MORALES TO GRAVITY DRAINING CL YELLOW. AT BS VISITING AT THIS TIME. CALL LT IN REACH.
--- NOTE | 2021-08-22 05:55 | NUR ---
PATIENT HAD AN UNEVENTFUL NIGHT. A&OX3, DID NOT APPEAR TO BE INTERESTED IN PARTICIPATING IN CARE OVERNIGHT. THIS RN ASKED ABOUT WHAT HE THOUGHT HE WAS AFTER FINISHING THE ANTIBIOTIC THERAPY. WAS HIS PLAN TO STAY IN NURSING CARE? PATIENT STATED THAT AT THIS POINT, HE WAS HOPING TO BE MUCH STRONGER AFTER 6 MORE WEEKS OF ANTIBIOTICS. NO CHANGES NOTED
--- NOTE | 2021-08-22 10:49 | NUR ---
ASKED PATIENT IF HE WANTED ME TO CALL HIS AND GIVE UPDATE? PATIENT STS NO THAT SHE WILL BE IN THIS AFTERNOON. GIVEN WARMED PRUNE JUICE , APPLE JUICE WITH MELTED PAT BUTTER. PATIENT DRANK ALL. WCTM CONSTIPATION.
--- NOTE | 2021-08-22 11:35 | NUR ---
PER PATIENT HIS CAN UPDATE HIS MOTHER.
--- NOTE | 2021-08-22 18:22 | NUR ---
ALERT. ORIENTED. LOW MOTIVATION. GIVEN; PRUNE JUICE COCKTAIL, MIRALAX AND ENEMA FOR CONSTIPATION WITHOUT RESULT AT THIS TIME. PLEASANT. COOPERATIVE. UNLABORED RESPIRATIONS. POWERGLIDE PATENT. UNABLE TO PRINT PICS OF WOUNDS DUE TO PRINTER NOT WORKING. PATIENT DID WORK WITH P.T./O.T. [employer]ENEDELIA
--- NOTE | 2021-08-23 04:03 | NUR ---
Leo was very restful last night. no complaints of discomfort with exception of his chronic low back which was tolerable. Leo drank two additional glasses of miralax, and is passing increasing gas, but as yet, no stool. He said he would take a suppository if after the nights second miralax had no effect, but then fell promptlyl asleep. Power glide in right upper arm is no longer drawing blood, and is extremely positional to infuse fluids.
[2021-08-23 04:53] LABS: BASOPHILS ABSOLUTE AUTO 0.08 K/mm3 (0.00-0.23); BASOPHILS PERCENT AUTO 1 % (0-2); EOSINOPHILS ABSOLUTE AUTO 0.17 K/mm3 (0.00-0.68); EOSINOPHILS PERCENT AUTO 2 % (0-6); Hematocrit 29.2 % (37.0-53.0); Hemoglobin 8.3 g/dL (13.5-17.5); IMMATURE GRAN ABSOLUTE AUTO 0.09 K/mm3 (0.00-0.10); IMMATURE GRAN PERCENT AUTO 1 % (0-1); LYMPHOCYTES ABSOLUTE AUTO 2.12 K/mm3 (0.84-5.20); LYMPHOCYTES PERCENT AUTO 24 % (21-46); MONOCYTES PERCENT AUTO 10 % (4-13); Mean Corpuscular HGB 23.3 pg (26.0-34.0); Mean Corpuscular HGB Conc 28.4 g/dL (31.5-36.5); Mean Corpuscular Volume 82 fL (80-100); Mean Platelet Volume 8.4 fL (9.1-12.4); NEUTROPHILS ABSOLUTE AUTO 5.66 K/mm3 (1.96-9.15); NEUTROPHILS PERCENT AUTO 63 % (41-73); NRBC ABSOLUTE 0.04 K/mm3 (0.00-0.02); NRBC Auto 0.4 /100 WBC (0.0-0.2); Platelet Count 517 K/mm3 (150-400); RDW Coefficient Variation 16.7 % (11.7-14.2); Red Blood Cell Count 3.56 M/mm3 (4.30-5.90); White Blood Cell Count 9.02 K/mm3 (4.00-11.30)
[2021-08-23 05:22] LABS: Anion Gap 5 mmol/L (6-16); Blood Urea Nitrogen 9 mg/dL (8-24); Bun/Creatinine Ratio 26.5 (12.0-20.0); CO2, Blood 34 mmol/L (21-32); Calcium, Blood 9.5 mg/dL (8.5-10.1); Chloride, Blood 96 mmol/L (98-108); Creatinine, Blood 0.34 mg/dL (0.60-1.20); Glomerular Filtration Rate >60 (60-); Glucose, Blood 138 mg/dL (70-99); Potassium, Blood 4.3 mmol/L (3.5-5.5); Sodium, Blood 135 mmol/L (136-145)
--- NOTE | 2021-08-23 14:31 | NUR ---
GIVEN PRUNE JUICE COCKTAIL THIS AM WITH MIRALAX . GIVEN PRUNE JUICE COCKTAIL WITH LUNCH.
--- NOTE | 2021-08-23 14:39 | NUR ---
TALKED TO DR. PRESSLEY ABOUT PATIENT CONSTIPATION. OK TO ORDER COLACE 200 MG BID AND SENNA BID PRN
--- NOTE | 2021-08-24 05:06 | NUR ---
DON HAD A GOOD NIGHT, AND RESTED WELL. HE IS STILL WORRIED ABOUT CONSTIPATION, AND AGAIN TOOK TWO DOSES OF MIRALAX IN PRUNE JUICE. ASKING ABOUT POSSIBILITY OF ABDOMINAL XRAY TODAY. BOWEL TONES ARE PRESENT IN ALL 4 QUADS, BUT HYPOACTIVE
--- NOTE | 2021-08-24 15:51 | NUR ---
SHIFT SUMMARY PT CONTINUES TO WAIT FOR D/C TO SNF FOR REMAINING ABX. PER D/C [facility]IL[facility] P[facility]DER M[facility]ER, HOPEFULLY TOMORROW BED WILL BE AVAILABLE. PT TX'D TO CHAIR AFTER BREAKFAST VIA LIFT. PT NOT WANTING TO GET OOB OR SIT UP IN CHAIR. PT REQUIRES FREQUENT ENCOURAGEMENT TO MOVE, DOES NOT HELP HIMSELF WITH MUCH AT ALL. CALLS CONSTANTLY FOR LITTLE THINGS THAT HE COULD DO. NO BM TO PRESENT THIS SHIFT. BOWEL CARE GIVEN. DR VELA HERE THIS AM TO SEE PT; UPDATE GIVEN. DR VELA TO REVIEW CHART FOR ADDITIONAL BOWEL CARE. TO RM THIS AFTERNOON. PT/OT IN TO WORK WITH PT. CALL LT IN REACH.
--- NOTE | 2021-08-25 03:50 | NUR ---
SHIFT SUMMARY A/O X3. BEDREST THIS SHIFT. RESTING COMFORTABLY. MORALES TO GRAVITY, NO BM THIS SHIFT. TOLERATING PO INTAKE. VSS. WILL CONTINUE TO MONITOR AND REPORT TO ONCOMING RN.
[2021-08-25 05:17] LABS: BASOPHILS ABSOLUTE AUTO 0.08 K/mm3 (0.00-0.23); BASOPHILS PERCENT AUTO 1 % (0-2); EOSINOPHILS ABSOLUTE AUTO 0.23 K/mm3 (0.00-0.68); EOSINOPHILS PERCENT AUTO 2 % (0-6); Hemoglobin 8.1 g/dL (13.5-17.5); IMMATURE GRAN ABSOLUTE AUTO 0.12 K/mm3 (0.00-0.10); IMMATURE GRAN PERCENT AUTO 1 % (0-1); LYMPHOCYTES ABSOLUTE AUTO 2.02 K/mm3 (0.84-5.20); LYMPHOCYTES PERCENT AUTO 21 % (21-46); MONOCYTES ABSOLUTE AUTO 0.83 K/mm3 (0.16-1.47); MONOCYTES PERCENT AUTO 9 % (4-13); Mean Corpuscular HGB 23.2 pg (26.0-34.0); Mean Corpuscular HGB Conc 28.9 g/dL (31.5-36.5); Mean Corpuscular Volume 80 fL (80-100); Mean Platelet Volume 8.6 fL (9.1-12.4); NEUTROPHILS ABSOLUTE AUTO 6.35 K/mm3 (1.96-9.15); NEUTROPHILS PERCENT AUTO 66 % (41-73); NRBC ABSOLUTE 0.03 K/mm3 (0.00-0.02); NRBC Auto 0.3 /100 WBC (0.0-0.2); Platelet Count 543 K/mm3 (150-400); RDW Coefficient Variation 16.9 % (11.7-14.2); RDW Standard Deviation 48.8 fL (35.1-46.3); Red Blood Cell Count 3.49 M/mm3 (4.30-5.90); White Blood Cell Count 9.63 K/mm3 (4.00-11.30)
[2021-08-25 05:58] LABS: Alanine Aminotransfer (ALT/SGP 40 U/L (12-78); Albumin, Blood 1.4 g/dL (3.4-5.0); Albumin/Globulin Ratio 0.3 (0.8-1.8); Alk Phos 148 U/L (50-136); Anion Gap 9 mmol/L (6-16); Aspartate Aminotrans (AST/SGOT 59 U/L (12-37); Bilirubin, Total 0.4 mg/dL (0.1-1.0); Blood Urea Nitrogen 9 mg/dL (8-24); CO2, Blood 30 mmol/L (21-32); Calcium, Blood 9.4 mg/dL (8.5-10.1); Chloride, Blood 96 mmol/L (98-108); Creatinine, Blood 0.35 mg/dL (0.60-1.20); Globulin, Blood 5.4 g/dL (2.2-4.0); Glomerular Filtration Rate >60 (60-); Glucose, Blood 117 mg/dL (70-99); Potassium, Blood 4.1 mmol/L (3.5-5.5); Sodium, Blood 135 mmol/L (136-145); Total Protein, Blood 6.8 g/dL (6.4-8.2)
--- NOTE | 2021-08-25 11:54 | NUR ---
pt gave verbal permission for this marketing copywriter to give medications
--- NOTE | 2021-08-25 14:03 | NUR ---
Pt. was in bed and in distress. Having trouble disgesting lunch. Requested I return later. Will monitor and plan visit that is not abround meal time.
--- NOTE | 2021-08-25 18:41 | NUR ---
SHIFT SUMMARY PT CONTINUES TO WAIT FOR D/C TO SNF TO FINISH IV ABX TX. PT CONTINUES TO LACK MOTIVATION TO IMPROVE, EVEN WITH MUCH ENCOURAGEMENT AND PERSISTANCE. PT STILL NEEDING TO HAVE BM; BOWEL CARE GIVEN AGAIN ALL DAY. PT PASSING ALOT OF GAS TODAY AND ALOT OF MUCUS AFTER SUPPOSITORY. LACTULOSE ALSO STARTED TODAY AND WILL BE GIVEN TONIGHT WELL. BED BATH GIVEN AND LINENS CHANGED AGAIN TODAY. PT REFUSING TO WORK WITH P/T AND WOULD ONLY DO A FEW ARM MOVEMENTS WITH O/T. PT ALSO REFUSED TO GET UP TO CHAIR TODAY FOR ANY MEALS OR OTHERWISE. PT WAS GOING TO BE D/C TO POSSIBLY TODAY, BUT CALLED RN DIABETES TO REPORT COVID + EMPLOYEES AND WOULD NOT BE ABLE TO TAKE ANY NON-COVID PTS. [facility] NOT ACCEPTING PT'S AT THIS TIME. RN DIABETES TO DISCUSS WITH PT AND IF OUT-OF- AREA BEDS WOULD BE AN OPTION IF AVAILABLE. PT RESTING QUIETLY AT THIS TIME. DENIED FURTHER NEEDS. CALL LT IN REACH.
[2021-08-26 04:46] LABS: BASOPHILS ABSOLUTE AUTO 0.07 K/mm3 (0.00-0.23); BASOPHILS PERCENT AUTO 1 % (0-2); EOSINOPHILS ABSOLUTE AUTO 0.24 K/mm3 (0.00-0.68); EOSINOPHILS PERCENT AUTO 3 % (0-6); Hematocrit 27.3 % (37.0-53.0); Hemoglobin 7.7 g/dL (13.5-17.5); IMMATURE GRAN ABSOLUTE AUTO 0.12 K/mm3 (0.00-0.10); IMMATURE GRAN PERCENT AUTO 1 % (0-1); LYMPHOCYTES ABSOLUTE AUTO 2.18 K/mm3 (0.84-5.20); LYMPHOCYTES PERCENT AUTO 23 % (21-46); MONOCYTES ABSOLUTE AUTO 0.79 K/mm3 (0.16-1.47); MONOCYTES PERCENT AUTO 8 % (4-13); Mean Corpuscular HGB 22.7 pg (26.0-34.0); Mean Corpuscular HGB Conc 28.2 g/dL (31.5-36.5); Mean Corpuscular Volume 81 fL (80-100); Mean Platelet Volume 8.4 fL (9.1-12.4); NEUTROPHILS ABSOLUTE AUTO 5.98 K/mm3 (1.96-9.15); NEUTROPHILS PERCENT AUTO 64 % (41-73); NRBC ABSOLUTE 0.05 K/mm3 (0.00-0.02); NRBC Auto 0.5 /100 WBC (0.0-0.2); Platelet Count 572 K/mm3 (150-400); Red Blood Cell Count 3.39 M/mm3 (4.30-5.90); White Blood Cell Count 9.38 K/mm3 (4.00-11.30)
[2021-08-26 05:17] LABS: Alanine Aminotransfer (ALT/SGP 30 U/L (12-78); Albumin, Blood 1.4 g/dL (3.4-5.0); Albumin/Globulin Ratio 0.3 (0.8-1.8); Alk Phos 141 U/L (50-136); Anion Gap 7 mmol/L (6-16); Aspartate Aminotrans (AST/SGOT 38 U/L (12-37); Bilirubin, Total 0.3 mg/dL (0.1-1.0); Blood Urea Nitrogen 10 mg/dL (8-24); Bun/Creatinine Ratio 26.5 (12.0-20.0); CO2, Blood 33 mmol/L (21-32); Calcium, Blood 9.5 mg/dL (8.5-10.1); Chloride, Blood 95 mmol/L (98-108); Creatinine, Blood 0.38 mg/dL (0.60-1.20); Globulin, Blood 5.3 g/dL (2.2-4.0); Glomerular Filtration Rate >60 (60-); Glucose, Blood 144 mg/dL (70-99); Sodium, Blood 135 mmol/L (136-145); Total Protein, Blood 6.7 g/dL (6.4-8.2)
--- NOTE | 2021-08-26 06:35 | NUR ---
SHIFT SUMMARY A&OX4, ANXIOUS, LACKS MOTIVATION. LCTA DIMINSIHED. PATIENT ON BOWEL REGIMEN HAD A SMALL JELLY CONSITENCY BM ON NOC, DID NOT HAVE ADEQUATE BOWEL EVACUATION. CHRONIC MORALES CATH WITH CLEAR YELLOW OUTPUT. COCCYX WOULD DRESSING CDI. RLE WITH EDEMA AND ERRYTHEMA. LBKA. BEDREST. REPOSISTIONED MULTIPLE TIMES. MUSCLE SPASMS TREATED PER EMAR. POWERGLIDE WITHOUT BLOOD RETURN, FLUSHES, POSITIONAL WHEN INFUSING.
--- NOTE | 2021-08-26 07:30 | NUR ---
ASSUMED CARE: PT RESTING IN BED, ASKED FOR ASSISTANCE WITH REPOSITIONING. NO FURTHER NEEDS OR CONCERNS AT THIS TIME.
--- NOTE | 2021-08-26 09:26 | NUR ---
On 08/24/21: The following facilities were contacted for placement: 1. [facility]: no opening presently, but may have an opening in the near future; chart notes faxed packet to admissions. 2. [facility]: faxed packet to admissions. 3. [facility]: left message. 4. [facility]: left message with admissions [address]. 5. [facility]: Left message with admissions. 6. [facility] : no openings
--- NOTE | 2021-08-26 16:50 | NUR ---
PT'S POWERGLIDE NOT PATENT. ATTEMPTED TO CHANGE DRESSING AND REVIEW INSERTION SITE WITH NO IMPROVEMENT. CALL TO FINE ARTS PACKER WITH INSTRUCTION TO REMOVE. FINE ARTS PACKER AWARE OF NEED FOR NEW IV.
--- NOTE | 2021-08-26 18:23 | NUR ---
SHIFT SUMMARY: PT WORKED WITH PT/OT THIS SHIFT. VERY UNCOMFORTABLE AT TIMES, REQUIRING FREQUENT REPOSITIONING. PLAN IS FOR IV ABX AND PLACEMENT FOR THIS. NEEDS NEW IV AND OVERCASTER AWARE. NO ACUTE NEEDS AT THIS TIME.
--- NOTE | 2021-08-26 21:55 | NUR ---
2099 POWER GLIDE STARTED, PABLO, PT TOLERATED WELL. 2154 POWER GLIDE NO LONGER PATIENT, NO LONGER FLUSHING OR DRAWING. DC'D. PT DOES NOT WANT US TO TRY AGAIN TONIGHT, WANTS TO HOLD IV MEDS AND TRY AGAIN TOMORROW.
[2021-08-27 05:06] LABS: BASOPHILS ABSOLUTE AUTO 0.08 K/mm3 (0.00-0.23); BASOPHILS PERCENT AUTO 1 % (0-2); EOSINOPHILS ABSOLUTE AUTO 0.34 K/mm3 (0.00-0.68); EOSINOPHILS PERCENT AUTO 4 % (0-6); Hematocrit 27.6 % (37.0-53.0); Hemoglobin 7.9 g/dL (13.5-17.5); IMMATURE GRAN PERCENT AUTO 1 % (0-1); LYMPHOCYTES ABSOLUTE AUTO 1.88 K/mm3 (0.84-5.20); LYMPHOCYTES PERCENT AUTO 23 % (21-46); MONOCYTES ABSOLUTE AUTO 0.81 K/mm3 (0.16-1.47); MONOCYTES PERCENT AUTO 10 % (4-13); Mean Corpuscular HGB 23.1 pg (26.0-34.0); Mean Corpuscular HGB Conc 28.6 g/dL (31.5-36.5); Mean Corpuscular Volume 81 fL (80-100); Mean Platelet Volume 8.6 fL (9.1-12.4); NEUTROPHILS ABSOLUTE AUTO 5.12 K/mm3 (1.96-9.15); NEUTROPHILS PERCENT AUTO 61 % (41-73); NRBC ABSOLUTE 0.03 K/mm3 (0.00-0.02); NRBC Auto 0.4 /100 WBC (0.0-0.2); Platelet Count 566 K/mm3 (150-400); RDW Standard Deviation 49.6 fL (35.1-46.3); Red Blood Cell Count 3.42 M/mm3 (4.30-5.90); White Blood Cell Count 8.33 K/mm3 (4.00-11.30)
[2021-08-27 05:48] LABS: Alanine Aminotransfer (ALT/SGP 27 U/L (12-78); Albumin, Blood 1.4 g/dL (3.4-5.0); Albumin/Globulin Ratio 0.3 (0.8-1.8); Alk Phos 138 U/L (50-136); Anion Gap 8 mmol/L (6-16); Aspartate Aminotrans (AST/SGOT 36 U/L (12-37); Bilirubin, Total 0.3 mg/dL (0.1-1.0); Blood Urea Nitrogen 9 mg/dL (8-24); Bun/Creatinine Ratio 25.7 (12.0-20.0); CO2, Blood 30 mmol/L (21-32); Calcium, Blood 9.2 mg/dL (8.5-10.1); Chloride, Blood 98 mmol/L (98-108); Creatinine, Blood 0.35 mg/dL (0.60-1.20); Globulin, Blood 5.1 g/dL (2.2-4.0); Glomerular Filtration Rate >60 (60-); Glucose, Blood 116 mg/dL (70-99); Potassium, Blood 4.3 mmol/L (3.5-5.5); Sodium, Blood 136 mmol/L (136-145); Total Protein, Blood 6.5 g/dL (6.4-8.2)
--- NOTE | 2021-08-27 06:47 | NUR ---
NO SIGNIFICANT CHANGES OVERNIGHT FOR DON. PATIENT IS ALERT AND ORIENTED AND COOPERATIVE WITH CARE. 2400 ANCEF WAS HELD WE WERE NOT ABLE TO OBTAIN ANOTHER IV ACCESS IN HIM AFTER HIS POWER GLIDE WAS DC'D. RIGHT ARM PAINFUL AFTER FINAL ATTEMPT AND PATIENT SAID THAT WAS ENOUGHT FOR THE NIGHT.
--- NOTE | 2021-08-27 07:30 | NUR ---
ASSUMED CARE: CREDIT AND LOAN COLLECTIONS SUPERVISOR AT BEDSIDE TO PLACE POWERGLIDE. NO ACUTE NEEDS OR CONCERNS AT THIS TIME.
--- NOTE | 2021-08-27 09:22 | NUR ---
Emailed Hospital Decompression Referral Short Stay Admission form to [facility] ([facility]) on 08/26/21.
--- NOTE | 2021-08-27 16:12 | NUR ---
Faxed packet to [facility] for admittance consideration. Presently the facilty is at capacity, but may have openings next week. facility coordinator is Aziza Gao [phone]/fax [phone].
--- NOTE | 2021-08-27 18:29 | NUR ---
SHIFT SUMMARY: NEW POWERGLIDE PLACED TODAY. PLAN IS FOR IV ABX FOR SEVERAL WEEKS AND DC TO SNF WHEN BED AVAILABLE. PT C/O TINGLING TO DR VELA WHO ORDERED CT THAT SHOWED DEGENERATIVE CHANGES SINCE 2012. CONSERVATION SPECIALIST AWARE. PT WORKED WITH PT/OT THIS SHIFT. NO ACUTE NEEDS OR CONCERNS AT THIS TIME.
[2021-08-28 04:55] LABS: BASOPHILS ABSOLUTE AUTO 0.06 K/mm3 (0.00-0.23); BASOPHILS PERCENT AUTO 1 % (0-2); EOSINOPHILS ABSOLUTE AUTO 0.37 K/mm3 (0.00-0.68); EOSINOPHILS PERCENT AUTO 4 % (0-6); Hematocrit 26.1 % (37.0-53.0); Hemoglobin 7.5 g/dL (13.5-17.5); Mean Corpuscular HGB 22.9 pg (26.0-34.0); Mean Corpuscular HGB Conc 28.7 g/dL (31.5-36.5); Mean Corpuscular Volume 80 fL (80-100); Mean Platelet Volume 8.3 fL (9.1-12.4); NRBC ABSOLUTE 0.06 K/mm3 (0.00-0.02); NRBC Auto 0.7 /100 WBC (0.0-0.2); Platelet Count 589 K/mm3 (150-400); RDW Coefficient Variation 17.2 % (11.7-14.2); RDW Standard Deviation 48.6 fL (35.1-46.3); Red Blood Cell Count 3.27 M/mm3 (4.30-5.90); White Blood Cell Count 9.16 K/mm3 (4.00-11.30)
[2021-08-28 04:56] LABS: IMMATURE GRAN ABSOLUTE AUTO 0.09 K/mm3 (0.00-0.10); IMMATURE GRAN PERCENT AUTO 1 % (0-1); LYMPHOCYTES ABSOLUTE AUTO 2.13 K/mm3 (0.84-5.20); LYMPHOCYTES PERCENT AUTO 23 % (21-46); MONOCYTES ABSOLUTE AUTO 0.83 K/mm3 (0.16-1.47); MONOCYTES PERCENT AUTO 9 % (4-13); NEUTROPHILS ABSOLUTE AUTO 5.68 K/mm3 (1.96-9.15); NEUTROPHILS PERCENT AUTO 62 % (41-73)
[2021-08-28 05:17] LABS: Anion Gap 7 mmol/L (6-16); Blood Urea Nitrogen 9 mg/dL (8-24); CO2, Blood 30 mmol/L (21-32); Calcium, Blood 9.1 mg/dL (8.5-10.1); Chloride, Blood 99 mmol/L (98-108); Creatinine, Blood 0.38 mg/dL (0.60-1.20); Glomerular Filtration Rate >60 (60-); Glucose, Blood 106 mg/dL (70-99); Potassium, Blood 4.2 mmol/L (3.5-5.5); Sodium, Blood 136 mmol/L (136-145)
--- NOTE | 2021-08-28 06:31 | NUR ---
no changes overnight other than Leo actually slept most of the night. early in the evening, he complained of just aching all over, and how the pain pump catheter treats only his back. flexaril given for leg and shoulder cramping, and after that, he slept quite well. Unable to get blood draw from [facility] this morning, awaiting lab results.
[2021-08-28 07:01] LABS: Percent Saturation 10.8 % (20.0-50.0)
--- NOTE | 2021-08-28 08:50 | NUR ---
Packet faxed to [facility] for swing bed. Point of contact Carrie [phone]/fax [phone]. Carrie stated she has a waiting list, but would like to review notes for potential future opening.
--- NOTE | 2021-08-28 16:20 | NUR ---
Pt seen with [facility] coordinator to review care needs. Pt bedridden. History of severe back pain iwht pain pump filled abour a month ago. He has and injured left painfull shoulder needs surgery Pt is ok with tranfer out of area to rehab just not to far all his people are here. Pt has constant spinal pain and struggling with symptom managment. We reviewed some strategies of care including physical therapy. He is anxious to get placed and get the extra work.
--- NOTE | 2021-08-28 18:15 | NUR ---
PT SOME PLEASANT TODAY. ROLLING TO SOME SIDES AND PROPPING WITH PILLOWS Q2. CASE MANAGEMENT WORKING TO PLACEMENT ISSUES. DID WORK SOME WITH PT/OT TODAY. PRESENTS UNMOTIVATED. WAS FOCUSED ON BM THIS AM. DID HAVE ANOTHER LARGE BM TODAY. NO NEW CONCERNS NOTED. BED IN LOW POSITION, CALL LITE IN REACH, CALLS APPROP
--- NOTE | 2021-08-29 04:56 | NUR ---
INTEGRATION ENGINEER SUMMARY PT ADMITTED FOR SEPSIS. PLAN TO DC TO SNF, BUT PT WANTING TO RETURN HOME. PT ALERT AND ORIENTED. DECREASED MOTIVATION AND IS INSISTING HE NEEDS HELP TO REPOSITION AND MOVE. PT MEDICATED X1 WITH MUSCLE RELAXER AT START OF SHIFT FOR CHRONIC PAIN. HE HAS BEEN SLEEPING THROUGHOUT THE NIGHT.
[2021-08-29 05:06] LABS: Albumin, Blood 1.3 g/dL (3.4-5.0); Anion Gap 8 mmol/L (6-16); Blood Urea Nitrogen 18 mg/dL (8-24); Bun/Creatinine Ratio 51.9 (12.0-20.0); CO2, Blood 28 mmol/L (21-32); Chloride, Blood 98 mmol/L (98-108); Creatinine, Blood 0.35 mg/dL (0.60-1.20); Glomerular Filtration Rate >60 (60-); Glucose, Blood 136 mg/dL (70-99); Phosphorus, Blood 4.4 mg/dL (2.5-4.9); Potassium, Blood 4.4 mmol/L (3.5-5.5); Sodium, Blood 134 mmol/L (136-145)
--- NOTE | 2021-08-29 08:00 | NUR ---
PT PLEASANT COOP PRESENTS UNMOTIVATED TO MOVE SELF. REQUESTS HELP WITH ALL MOVEMENT. A/O X3 TALKATIVE. PLEASANT. H/R REG, NO MURMER NOTED. LUNGS CLEAR, RESP EASY, UNLABORED, ON R/A. BT X4 LAST BM YEST. NO C/O BEING CONSTIPATED. MORALES DRAINING YELLOW FLUID. 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 NO OPEN SORES NOTED. RT LEG RED, SCALEY, BOTTOM RED, BUT NOT OPEN AT THIS TIME. BED INLOLW POSOTION, CALL LITE IN REACH, CALLS APPROP
--- NOTE | 2021-08-29 17:24 | NUR ---
PT WORKED WITH PT TODAY. UNSURE IF WALKED OR NOT. DID RECEIVE BED BATH. DR STARTED ON IRON IV TODAY. PENDING PLACEMENT. NO NEW CONCERNS NOTED. HAD BM TODAY. HAS BECOME CONCENTRATED ON THIS AGAIN. GIVING MORE SENEKOT THIS MAN. NO OTHER CONCERNS NOTED. BED IN LOW POSITION, CALL LITE IN REACH, CALLS APPROP
[2021-08-30 05:04] LABS: Albumin, Blood 1.2 g/dL (3.4-5.0); Anion Gap 7 mmol/L (6-16); Blood Urea Nitrogen 20 mg/dL (8-24); Bun/Creatinine Ratio 52.5 (12.0-20.0); CO2, Blood 28 mmol/L (21-32); Calcium, Blood 9.1 mg/dL (8.5-10.1); Chloride, Blood 100 mmol/L (98-108); Creatinine, Blood 0.38 mg/dL (0.60-1.20); Glomerular Filtration Rate >60 (60-); Glucose, Blood 164 mg/dL (70-99); Phosphorus, Blood 4.3 mg/dL (2.5-4.9); Potassium, Blood 4.2 mmol/L (3.5-5.5); Sodium, Blood 135 mmol/L (136-145)
--- NOTE | 2021-08-30 06:11 | NUR ---
ENGINEERING SECRETARY SUMMARY PT AWAITING DISCHARGE TO SNF. COMPLAINED OF FEELING THAT HE NEEDED TO HAVE A BM AND REQUESTED A SUPPOSITORY. I TOLD HIM I DIDN'T FEEL IT WAS APPROPRIATE SINCE HE IS HAVING 2-3 LARGE BMS DAILY. PT SEEMS SLIGHTLY MORE MOTIVATED TO MOVE AROUND AND ASSIST IN CARE. STILL UNABLE TO SIT UP COMPLETELY ON HIS OWN AND IS REFUSING TO USE THE LEFT ARM. PT GIVEN FLEXERIL AT HS AND SLEPT MOST OF THE SHIFT. RECEIVED ONE DOSE OF IV ABX. NO OTHER COMPLAINTS THIS SHIFT.
--- NOTE | 2021-08-30 14:21 | NUR ---
NAUSEA & MORALES PT STATES HE IS FEELING NAUSEATED. ZOFRAN ORDER OBTAINED. DR. BLANDON ALSO ORDERED TO REMOVED MORALES.
--- NOTE | 2021-08-30 15:30 | NUR ---
HYPOTENSION PT AFTERNOON BP OF 86/46 AND HR OF [address] BLANDON. PT C/O DIZZINESS AND NAUSEA. DR. BLANDON ORDERED AN EKG- RESIDENTIAL SPECIALIST NOTIFIED. AND A 50CC BOLUS OF NS.
[2021-08-30 15:57] LABS: BASOPHILS ABSOLUTE AUTO 0.07 K/mm3 (0.00-0.23); BASOPHILS PERCENT AUTO 1 % (0-2); EOSINOPHILS ABSOLUTE AUTO 0.07 K/mm3 (0.00-0.68); EOSINOPHILS PERCENT AUTO 1 % (0-6); IMMATURE GRAN PERCENT AUTO 3 % (0-1); LYMPHOCYTES ABSOLUTE AUTO 2.22 K/mm3 (0.84-5.20); LYMPHOCYTES PERCENT AUTO 15 % (21-46); MONOCYTES ABSOLUTE AUTO 1.04 K/mm3 (0.16-1.47); MONOCYTES PERCENT AUTO 7 % (4-13); Mean Corpuscular HGB 22.4 pg (26.0-34.0); Mean Corpuscular HGB Conc 27.5 g/dL (31.5-36.5); Mean Corpuscular Volume 82 fL (80-100); Mean Platelet Volume 8.9 fL (9.1-12.4); NEUTROPHILS PERCENT AUTO 74 % (41-73); NRBC ABSOLUTE 0.24 K/mm3 (0.00-0.02); NRBC Auto 1.6 /100 WBC (0.0-0.2); Platelet Count 622 K/mm3 (150-400); RDW Coefficient Variation 17.7 % (11.7-14.2); RDW Standard Deviation 50.3 fL (35.1-46.3); Red Blood Cell Count 2.45 M/mm3 (4.30-5.90)
[2021-08-30 16:01] LABS: Hemoglobin 5.5 g/dL (13.5-17.5)
--- NOTE | 2021-08-30 16:38 | NUR ---
PLAN TO TRANSFER TO PCU PT BOLUS 500CC NS INCREASED BP TO 104/82. HR REMAINS TACHYAT 110-130S. BM VERY ROTTEN SMELLING. DR. BLANDON ORDERED TO COLLECT A SAMPLE. THIS WAS OBTAINED & SENT TO LAB. BM IS LARGER AMOUNTS AND HAS A BURGUNDY TINGE TO IT WHICH IS A CHANGE FROM THIS AM, WHEN IS WAS ONLY DARK BROWN. DR. BLANDON NOTIFIED AND PLAN TO TRANSFER PT TO PCU IS IN PLACE. PT UPDATED ON PLAN & HIS , PRESTON WAS ALSO NOTIFIED. NO GI IS ON, SO PLAN FOR SURGICAL CONSULT TO BE PLACED PER DR. BLANDON. PT CONTINUES TO COMPLAIN OF FATIGUE AND DIZZINESS.
[2021-08-30 16:58] LABS: Stool Occult Blood Guaiac 1 Pos (Neg)
--- NOTE | 2021-08-30 17:34 | NUR ---
TRANSFERED TO [facility] REPORT GIVEN TO NAVEEN PINON AND PT TRANSFERED WITH HELP FROM [facility] OPERATOR HELPER CABLE TOOL, LORI. BELONGINGS SENT WITH PT TO [facility].
--- NOTE | 2021-08-30 18:27 | NUR ---
TRANSFER NOTE TELEPHONE REPORT RECEIVED FROM NAVEEN LITTLE ON MED; PT TRANSFERED TO ROOM. PT ORIENTED TO ROOM AND CALL LIGHT. PT RESPONDING TO VERBAL STIMULI, QUICKLY FALLING BACK ASLEEP QUICKLY. ORIENTED x4; CALM AND COOPERATIVE WITH CARE. PT PALE IN APPERANCE, EXTERMITIES COLD TO THE TOUCH. PT REPORTING CHEST PRESSURE, DIZZINESS AND BLURRED VISION, STARTED EARLIER TODAY, PER REPORT MD AWARE. PT STARTED ON 1 OF 2 PRBC THIS EVENING, APPEARS TO BE TOLERATING WELL. BP SOFT, WILL MONITOR. OTHER VSS. NO OTHER ACUTE CHANGES NOTED. WILL CONTINUE TO MONITOR UNITL REPORT GIVEN TO ONCOMING RN.
[2021-08-31 02:04] LABS: BASOPHILS PERCENT AUTO 1 % (0-2); EOSINOPHILS ABSOLUTE AUTO 0.16 K/mm3 (0.00-0.68); EOSINOPHILS PERCENT AUTO 1 % (0-6); Hematocrit 19.1 % (37.0-53.0); IMMATURE GRAN ABSOLUTE AUTO 0.51 K/mm3 (0.00-0.10); IMMATURE GRAN PERCENT AUTO 4 % (0-1); LYMPHOCYTES ABSOLUTE AUTO 2.91 K/mm3 (0.84-5.20); LYMPHOCYTES PERCENT AUTO 20 % (21-46); MONOCYTES ABSOLUTE AUTO 1.21 K/mm3 (0.16-1.47); MONOCYTES PERCENT AUTO 8 % (4-13); Mean Corpuscular HGB 25.5 pg (26.0-34.0); Mean Corpuscular HGB Conc 30.9 g/dL (31.5-36.5); Mean Corpuscular Volume 83 fL (80-100); NEUTROPHILS ABSOLUTE AUTO 9.57 K/mm3 (1.96-9.15); NEUTROPHILS PERCENT AUTO 66 % (41-73); NRBC ABSOLUTE 0.35 K/mm3 (0.00-0.02); NRBC Auto 2.4 /100 WBC (0.0-0.2); Platelet Count 542 K/mm3 (150-400); RDW Coefficient Variation 16.1 % (11.7-14.2); RDW Standard Deviation 46.9 fL (35.1-46.3); Red Blood Cell Count 2.31 M/mm3 (4.30-5.90); White Blood Cell Count 14.46 K/mm3 (4.00-11.30)
[2021-08-31 02:06] LABS: Hemoglobin 5.9 g/dL (13.5-17.5)
[2021-08-31 02:20] LABS: Albumin, Blood 1.1 g/dL (3.4-5.0); Anion Gap 7 mmol/L (6-16); Blood Urea Nitrogen 38 mg/dL (8-24); Bun/Creatinine Ratio 82.8 (12.0-20.0); CO2, Blood 26 mmol/L (21-32); Calcium, Blood 8.5 mg/dL (8.5-10.1); Chloride, Blood 100 mmol/L (98-108); Creatinine, Blood 0.46 mg/dL (0.60-1.20); Glomerular Filtration Rate >60 (60-); Glucose, Blood 225 mg/dL (70-99); Phosphorus, Blood 4.2 mg/dL (2.5-4.9); Potassium, Blood 4.7 mmol/L (3.5-5.5); Sodium, Blood 133 mmol/L (136-145)
--- NOTE | 2021-08-31 02:30 | NUR ---
CALLED DR PRICE REGARDING PT'S HGB OF 5.9. PROVIDER WANTING TO WAIT AND SEE AM LAB HGB.
[2021-08-31 06:33] LABS: BASOPHILS ABSOLUTE AUTO 0.07 K/mm3 (0.00-0.23); BASOPHILS PERCENT AUTO 0 % (0-2); EOSINOPHILS ABSOLUTE AUTO 0.12 K/mm3 (0.00-0.68); EOSINOPHILS PERCENT AUTO 1 % (0-6); IMMATURE GRAN ABSOLUTE AUTO 0.86 K/mm3 (0.00-0.10); IMMATURE GRAN PERCENT AUTO 5 % (0-1); LYMPHOCYTES ABSOLUTE AUTO 2.63 K/mm3 (0.84-5.20); LYMPHOCYTES PERCENT AUTO 16 % (21-46); MONOCYTES ABSOLUTE AUTO 1.28 K/mm3 (0.16-1.47); MONOCYTES PERCENT AUTO 8 % (4-13); Mean Corpuscular HGB 25.2 pg (26.0-34.0); Mean Corpuscular HGB Conc 30.3 g/dL (31.5-36.5); Mean Corpuscular Volume 83 fL (80-100); Mean Platelet Volume 9.1 fL (9.1-12.4); NEUTROPHILS ABSOLUTE AUTO 11.92 K/mm3 (1.96-9.15); NEUTROPHILS PERCENT AUTO 71 % (41-73); NRBC ABSOLUTE 0.46 K/mm3 (0.00-0.02); NRBC Auto 2.7 /100 WBC (0.0-0.2); Platelet Count 552 K/mm3 (150-400); RDW Coefficient Variation 16.5 % (11.7-14.2); Red Blood Cell Count 2.14 M/mm3 (4.30-5.90); White Blood Cell Count 16.88 K/mm3 (4.00-11.30)
[2021-08-31 06:38] LABS: Hematocrit 17.8 % (37.0-53.0); Hemoglobin 5.4 g/dL (13.5-17.5)
[2021-08-31 06:46] LABS: Anion Gap 7 mmol/L (6-16); Blood Urea Nitrogen 42 mg/dL (8-24); Bun/Creatinine Ratio 84.2 (12.0-20.0); CO2, Blood 27 mmol/L (21-32); Calcium, Blood 8.6 mg/dL (8.5-10.1); Chloride, Blood 99 mmol/L (98-108); Glomerular Filtration Rate >60 (60-); Glucose, Blood 245 mg/dL (70-99); Potassium, Blood 4.7 mmol/L (3.5-5.5); Sodium, Blood 133 mmol/L (136-145)
--- NOTE | 2021-08-31 06:57 | NUR ---
CALLED DR PRICE REGARDING HGB 5.4 AND HCT 17.8. ALBUMIN AT 1.1 AND NA OF 133. FURTHER ORDERS FOR 1UNIT OR RBC AND ALBUMIN 25MG IV X1.
--- NOTE | 2021-08-31 07:28 | NUR ---
SHIFT SUMMARY PT IS ALERT AND ORIENTED. AT TIMES PT WOULD TALK TO SELF. PT REPORTS PAIN/PRESSRUE/CRAMPS IN UPPER ABDOMEN RADIATING TO BACK; THIS HAPPENS IN WAVES AND PT BECOMES DIAPHORETIC, SOB, AND NAUSEOUS. PT'S BP'S HAVE BEEN SOFT, SATS HAVE BEEN ABOVE 92% on 1L NC. THIS MORNING WHEN TURNING PT'S SATS DROPPED AND WAS O2 WAS INCREASED TO 2L. PT HAD 2 BM ONE BEING VERY LARGE MAROON AND BROWN. MORALES IN PLACE AND DRAINING TO GRAVITY. CALL LIGHT IS WITHIN REACH.
--- NOTE | 2021-08-31 15:48 | NUR ---
COBRA TRANSFER/[facility] PT A&Ox4; ANXIOUS, COOPERATIVE WITH CARE. PT REPORTS GENERALZIED WEAKNESS. PT REPORTS TENDERNESS TO ABD AND NAUSEA, COMING IN WAVES INTERMITTENTLY. PT REPORTS CONTINUEING CHEST PRESSURE, DIZZINESS AND BLURRED VISION. SPO2 88-100% ON 2L O2 VIA NC, ATTEMPTED TO TITRATE TO RA PT DESAT 85-90%. PT RECEIVED 1 UNIT PRBC AND A SECOND UNIT TRANFUSING WHEN PT LEFT WITH [facility]. PT RECEIVED ALBUMIN AND PROTONIX. THIS AM. PER DR BAZAN HELD SHORT ACTING INSULIN, ADMINISTERED ONE TIME DOSE OF LONG ACTING INSULIN. PT HAD MULTIPLE BOUTS OF DARK BROWN/MAROON BM DURING SHIFT. OTHER VSS. NO OTHER ACUTE CHANGES NOTED. PT LEFT ROOM WITH [facility] RN AT 1401. REPORT GIVEN TO BRANDEE HODGE ASSUMING CARE OF PATIENT.
== END 2021-08-31 14:01 | disposition short-term general hospital (02) | DRG 871 ==
LOC: ER 10:45 → ERHOLD 14:27 → PCU 14:27 → MEDS 14:27 → ERHOLD 16:40 → PCU 21:16 → MEDS 08-10 22:14 → PCU 08-30 17:07
PROVIDERS: Emergency Medicine; Family Medicine; Internal Medicine; Internal Medicine Endocrinology, Diabetes & Metabolism; Nurse Practitioner Acute Care; ADMIT Family Medicine
PROC: 30233N1 Transfusion of Nonautologous Red Blood Cells into Peripheral Vein, Percutaneous Approach (ICD-10-PCS; principal; 2021-08-30)
DX: A41.01 Sepsis due to Methicillin susceptible Staphylococcus aureus (principal); K72.00 Acute and subacute hepatic failure without coma; G93.41 Metabolic encephalopathy; I33.0 Acute and subacute infective endocarditis; E46 Unspecified protein-calorie malnutrition; E87.2 Acidosis; N39.0 Urinary tract infection, site not specified; L03.115 Cellulitis of right lower limb; Z68.41 Body mass index [BMI] 40.0-44.9, adult; L03.116 Cellulitis of left lower limb; B37.0 Candidal stomatitis; K52.1 Toxic gastroenteritis and colitis; D62 Acute posthemorrhagic anemia; K92.2 Gastrointestinal hemorrhage, unspecified; R13.10 Dysphagia, unspecified; R65.20 Severe sepsis without septic shock; E78.5 Hyperlipidemia, unspecified; E86.0 Dehydration; L89.152 Pressure ulcer of sacral region, stage 2; U09.9 Post COVID-19 condition, unspecified; E11.42 Type 2 diabetes mellitus with diabetic polyneuropathy; R47.81 Slurred speech; I10 Essential (primary) hypertension; E88.09 Other disorders of plasma-protein metabolism, not elsewhere classified; E11.51 Type 2 diabetes mellitus with diabetic peripheral angiopathy without gangrene; K59.00 Constipation, unspecified; T36.95XA Adverse effect of unspecified systemic antibiotic, initial encounter; G47.33 Obstructive sleep apnea (adult) (pediatric); D50.9 Iron deficiency anemia, unspecified; I89.0 Lymphedema, not elsewhere classified; M54.9 Dorsalgia, unspecified; G89.29 Other chronic pain; E66.01 Morbid (severe) obesity due to excess calories; Z89.512 Acquired absence of left leg below knee; Z28.21 Immunization not carried out because of patient refusal; Z88.0 Allergy status to penicillin; Z79.84 Long term (current) use of oral hypoglycemic drugs; Z79.899 Other long term (current) drug therapy; Z90.49 Acquired absence of other specified parts of digestive tract; Z98.890 Other specified postprocedural states
CPT/HCPCS: 0097U; 36415; 36430; 36600; 51702; 70450; 71045; 71260; 72125; 72132; 74177; 80047; 80048; 80053; 80069; 80076; 80202; 81001; 82272; 82728; 82803; 82947; 83036; 83540; 83550; 83605; 83735; 84100; 84439; 84443; 84484; 85014; 85025; 85651; 86140; 86850; 86900; 86901; 86923; 87040; 87077; 87086; 87147; 87186; 92526; 92610; 93005; 93010; 93306; 93312; 93325; 93926; 93971; 94760; 94762; 96361-59; 96365-59; 96366-59; 96375-59; 97110; 97140; 97162; 97166; 97530; 97535; 99285-25; A9270; C9113; G0480; J0690; J0696; J1650; J1815; J1940; J2250; J2310; J2916; J3010; J3370; J7030; J7040; J7050; P9016; P9046; Q9967